=== PATIENT | male | born 1955 | race Caucasian/White ===

== ENCOUNTER 2016-11-12 13:49 | Inpatient (IN) ==
--- NOTE | 2016-11-12 13:59 | Emergency Department Note ---
Disposition Clinical Impression: Perirectal abscess, Cellulitis of buttock Disposition: Admitted As Inpatient Condition: Good Referrals: NO,PCP [Non-Partnered Physician] - Forms: ED Satisfaction Letter Time of Disposition: 18:17 Skin/Abscess/FB HPI Chief complaint: ED Wound/Laceration Stated complaint: ABCESS Time Seen by Provider: 11/12/16 13:55 Source: patient Mode of arrival: ambulatory Limitations: no limitations Nursing Notes Reviewed: Yes Vital Signs Reviewed: Yes HPI Narrative: 61-year-old who presents with swelling and redness to his right buttocks. States it started spontaneously draining. Patient has a history of chronic back pain has a pain stimulator. Patient underwent a myelogram last week and then developed symptoms of a draining abscess. Patient thinks he's been running some fever. Pt Subjective Complaint: abscess/boil (Right buttocks) Onset (ago): day(s) Location: buttocks Severity: moderate Quality: aching Consistency: constant Improves with: none Worsens with: palpation Context: other (Diabetic) Associated symptoms: Reports: fever, chills Treatments prior to arrival: none Home Medications Medication Instructions Recorded Confirmed ALPRAZolam [Xanax 0.5 MG Tablet] 0.5 mg PO BID PRN 12/22/15 04/01/16 Celecoxib [Celebrex] 200 mg PO DAILY 12/22/15 04/01/16 Cholecalciferol (D-3) [Vitamin D] 1,000 unit PO HS 12/22/15 04/01/16 Clopidogrel [Plavix] 75 mg PO DAILY 12/22/15 04/01/16 Duloxetine HCl [Cymbalta] 60 mg PO BID 12/22/15 04/01/16 Folic Acid 1 mg PO DAILY 12/22/15 04/01/16 Insulin Glargine [Lantus] 80 unit SQ BID 12/22/15 04/01/16 Insulin LISPRO [Humalog Kwikpen 40 unit SQ BID 12/22/15 04/01/16 U-100] Losartan Potassium [Cozaar] 100 mg PO DAILY 12/22/15 04/01/16 Metoprolol [Lopressor] 25 mg PO DAILY 12/22/15 04/01/16 Morphine Sulfate ER (24 HR) 30 mg PO Q12H 12/22/15 04/01/16 [Morphine Sulfate ER Caps] Nitroglycerin [Nitrostat] 0.4 mg SL AD PRN 12/22/15 04/01/16 Pantoprazole Sodium [Protonix] 40 mg PO DAILY 12/22/15 04/01/16 Pregabalin [Lyrica] 150 mg PO BID 12/22/15 04/01/16 Simvastatin [Zocor] 80 mg PO HS 12/22/15 04/01/16 Lubiprostone [Amitiza] 8 mcg PO BID 04/01/16 04/01/16 Previous Rx's Medication Instructions Recorded Nicotine Patch [Nicoderm] 21 mg TD DAILY #30 patch.td24 12/26/15 HYDROcodone/Acet 10/325 mg [[place] 1 tab PO Q4H PRN #40 tablet 04/02/16 10-325 mg] Allergies Allergy/AdvReac Type Severity Reaction Status Date / Time gentamicin [Gentamicin] Allergy Fever Verified 01/13/16 14:10 Oxycodone [From Percocet] Allergy Hives Verified 01/13/16 14:10 venom-honey bee Allergy Anaphylaxis Verified 01/13/16 14:10 [bee venom (honey bee)] All systems ED: reviewed and negative except as stated. Constitutional: Reports: fever, chills. Denies: weakness, weight change Eyes: Denies: eye pain, eye discharge, vision change ENT ED: Denies: ear pain, throat pain, dental pain, hearing loss, epistaxis, congestion, dysphagia Cardiovascular: Denies: chest pain, palpitations, dyspnea on exertion, edema, syncope Respiratory: Denies: cough, dyspnea, wheezes, hemoptysis, stridor Gastrointestinal: Denies: abdominal pain, nausea, vomiting, diarrhea, constipation, hematemesis, melena, hematochezia Genitourinary: Denies: urgency, dysuria, frequency, hematuria Musculoskeletal: Denies: back pain, neck pain, arthralgia, myalgia Integumentary: Denies: rash, abrasion, lesions Neurological: Denies: headache, weakness, numbness, paresthesias, confusion, abnormal gait, vertigo Psychiatric: Denies: anxiety, depression, suicidal thoughts, homicidal thoughts , auditory hallucinations, visual hallucinations Endocrine: Denies: fatigue Hematological/Lymphatic: Denies: easy bleeding, easy bruising Allergic/Immunologic: Denies: facial swelling, urticaria Past Medical History - Past Medical History Medical history: Reports: cancer, coronary artery disease, DVT, diabetes, GERD, hyperlipidemia, hypertension, other Surgical history: Reports: appendectomy, cholecystectomy, colectomy, orthopedic , other, other Psychiatric history: Reports: anxiety, depression - Social History Smoking Status: Current every day smoker Smokeless Tobacco Status: No Alcohol use: Reports: none Drug use: Reports: none Physical Exam - General Limitations: no limitations General appearance: alert, in no apparent distress - Head Head exam: atraumatic, normocephalic, normal inspection - Eye Eye exam: Present: normal appearance, PERRL, EOMI - ENT ENT exam: normal exam, normal oropharynx, mucous membranes moist - Neck Neck exam: Present: normal inspection, full ROM, trachea midline - Chest Chest inspection: Present: normal inspection, symmetric chest wall rise - Cardiovascular Cardiovascular exam: Present: regular rate - Abdominal Exam Abdominal exam: Present: soft, Non-Tender. Absent: tenderness, distention, guarding, rebound, rigidity - Rectal Exam Rectal exam: Present: tenderness (Right buttocks large area of erythema and open wound draining purulent material), other - Extremities Exam Extremities exam: Present: normal inspection, full ROM. Absent: tenderness, pedal edema - Expanded Lower Extremity Exam Neurovascular/Tendon exam: Absent: motor deficit, sensory deficit, tendon deficit Gait: not tested/not observed - Back Exam Back exam: Present: normal inspection, full ROM. Absent: tenderness - Neurological Exam Neurological exam: Present: alert, oriented X3 - Psychiatric Psychiatric exam: Present: normal affect, normal mood - Skin Skin exam: Present: warm, dry, intact, normal color Course - Reevaluation(s) Reevaluation #1: 61-year-old with draining abscess in the right buttocks. CT scan shows some deep it's extension. No drainable fluid collection. Consultation obtained with surgery patient will be admitted for IV antibiotics. Time: 18:17 - Consultations Consultation #1: Discussed with Dr. Silveira will see in consult. Time: 18:15 Consultation #2: Discussed with Alondra Esteban, it. Time: 18:16 Vital Signs Temperature 98.5 F 11/12/16 13:53 Pulse Rate 100 11/12/16 13:53 Respiratory Rate 22 11/12/16 13:53 Blood Pressure 113/82 11/12/16 13:53 O2 Sat by Pulse Oximetry 92 11/12/16 13:53 Temperature 98.5 F 11/12/16 13:53 Pulse Rate 98 11/12/16 17:54 Respiratory Rate 16 11/12/16 17:04 Blood Pressure 111/54 11/12/16 17:54 O2 Sat by Pulse Oximetry 96 11/12/16 17:54 Oxygen Delivery Oxygen Delivery Room Air Skin/Abscess/Foreign Body - Lab Data Lab results reviewed: Yes I reviewed the patient's lab results. Result diagrams: 11/12/16 15:13 11/12/16 15:13 Lab Results 11/12/16 11/12/16 11/12/16 Range/Units 15:13 15:13 15:13 WBC 28.2 H (4.3-11.1) K/mcL RBC 4.22 (4.19-5.50) M/mcL Hgb 12.6 L (12.9-16.9) g/dL Hct 36.4 L (37.5-50.1) % MCV 86.3 (83.0-100.0) fL MCH 29.9 (28.0-33.3) pg MCHC 34.6 (31.6-35.5) g/dL RDW 13.2 (11.5-14.5) % Plt Count 263 (140-400) K/mcL MPV 11.2 (9.4-12.4) fL Immature Gran % 0.7 (0-4) % Seg Neutrophils % 86.6 % Lymphocytes % 4.8 % Monocytes % 7.8 % Eosinophils % 0.0 % Basophils % 0.1 % Neutrophils # 24.4 H (1.6-8.9) K/mcL Lymphocytes # 1.4 (0.6-4.6) K/mcL Monocytes # 2.2 H (0.0-1.3) K/mcL Eosinophils # 0.0 (0.0-0.6) K/mcL Basophils # 0.0 (0.0-0.2) K/mcL Immature Plt Fraction 10.4 H (1.1-6.1) % ESR 104 H (0-10) mm/hr Sodium 130 L (136-145) mEq/L Potassium 3.9 (3.5-4.5) mEq/L Chloride 97 L (98-109) mEq/L Carbon Dioxide 22 (19-29) mEq/L BUN 27 H (8-26) mg/dL Creatinine 1.03 (0.72-1.25) mg/dL Est GFR ( Amer) > 60 (> 60) Est GFR (Non-Af Amer) > 60 (> 60) BUN/Creatinine Ratio 26 (6-26) Glucose 310 H (70-99) mg/dL Calculated Osmolality 287 (280-300) Calcium 9.2 (8.6-10.8) mg/dL - Radiology Data Radiology results reviewed: Yes I reviewed the patient's radiology results. Pelvis CT 11/12/16 13:55 IMPRESSION: 1. Soft tissue gas and fat stranding in the inferior left gluteal region extending into the ischiorectal fossa as well as through the left levator ani muscle and anterior to the prostate gland. No evidence of intraperitoneal extension. No drainable fluid collection. 2. No acute osseous abnormality. D/ / Mikhail Rodriguez MD / Mikhail Rodriguez MD Interpreting Provider: Mikhail Rodriguez MD
[2016-11-12 15:22] LABS: Basophils % 0.1 %; Hematocrit 36.4 % (37.5-50.1); Hemoglobin 12.6 g/dL (12.9-16.9); Immature Granulocytes % 0.7 % (0-4); Immature Platelets 10.4 % (1.1-6.1); Lymphocytes % 4.8 %; Mean Corpuscular HGB Conc 34.6 g/dL (31.6-35.5); Mean Corpuscular Hemoglobin 29.9 pg (28.0-33.3); Mean Corpuscular Volume 86.3 fL (83.0-100.0); Mean Platelet Volume 11.2 fL (9.4-12.4); Monocytes # 2.2 K/mcL (0.0-1.3); Monocytes % 7.8 %; Neutrophils # 24.4 K/mcL (1.6-8.9); Platelet Count 263 K/mcL (140-400); Red Blood Count 4.22 M/mcL (4.19-5.50); Red Cell Distribution Width 13.2 % (11.5-14.5); Segmented Neutrophils % 86.6 %
[2016-11-12 15:23] LABS: Lymphocytes # 1.4 K/mcL (0.6-4.6)
[2016-11-12 15:41] LABS: BUN/Creatinine Ratio 26 (6-26); Blood Urea Nitrogen 27 mg/dL (8-26); Calcium 9.2 mg/dL (8.6-10.8); Carbon Dioxide 22 mEq/L (19-29); Chloride 97 mEq/L (98-109); Glucose 310 mg/dL (70-99); Osmolality,Calculated 287 (280-300); Potassium 3.9 mEq/L (3.5-4.5); Sodium 130 mEq/L (136-145); eGFR For African Americans > 60 (> 60); eGFR For Non-African Americans > 60 (> 60)
[2016-11-12] MEDS ORDERED: Piperacillin/Tazobactam 3.375 GM in D5% in Water (Mini-Bag+) 100 ML IVPB ONE (15:55)
[2016-11-12] MEDS ORDERED: Vancomycin 1,000 MG in D5% in Water 250 ML IVPB ONE (15:55)
[2016-11-12] MEDS ORDERED: Ondansetron 4 MG/2 ML VIAL IVP ONE (18:54)
[2016-11-12] MEDS ORDERED: *HR* Morphine 2 MG/ML SYRINGE IVP ONE (18:54)
[2016-11-12] MEDS ORDERED: *HR* Morphine 2 MG/ML SYRINGE IVP PRN (21:07)
[2016-11-12] MEDS ORDERED: Naloxone 0.4 MG/ML INJ IVP PRN (21:07)
[2016-11-12] MEDS ORDERED: Ondansetron 4 MG/2 ML VIAL IVP PRN (21:07)
[2016-11-12] MEDS ORDERED: Acetaminophen 325 MG TABLET PO PRN (21:07)
[2016-11-12] MEDS ORDERED: Nitroglycerin 0.4 MG TAB.SUBL SL PRN (21:11)
[2016-11-12] MEDS ORDERED: *HR* HYDROcodone/Acet 5/325 mg TABLET PO PRN (21:11)
[2016-11-12] MEDS ORDERED: ALPRAZolam 0.5 MG TABLET PO PRN (21:11)
[2016-11-12] MEDS ORDERED: D5% in Water 1,000 ML IVC PRN (21:49)
[2016-11-12] MEDS ORDERED: *HR* Dextrose 50 % in Water (Syg) 50 ML SYRINGE IVP PRN (21:49)
[2016-11-12] MEDS ORDERED: Dextrose Gel 15 GM PO PRN ×2 (21:49)
--- NOTE | 2016-11-12 21:56 | Internal Med History&Physical ---
<Alondra Esteban M - Last Filed: 11/12/16 23:30> Date of Encounter: 11/12/16 Time of Encounter: 21:50 Assessment and Plan (1) Perirectal abscess Current visit: Yes Status: Acute Patient presented with worsening sore and abscess on left buttock. WBC 28.2, fever, chills, sweats, poor appetite. Pelvis CT showed soft tissue gas and fat stradning in inferior left gluteal region extending into the ischiorectal fossa and the left levator ani muscle and anterior to prostate. No drainable fluid collection. IV Vanc and Zosyn Consult to surgery, ED spoke with Dr. Silveira who will see patient tomorrow NPO after midnight for possible surgery. (2) Sleep apnea Current visit: Yes Status: Acute respiratory therapy consulted for CPAP Qualifiers: Sleep apnea type: unspecified type Qualified Code(s): G47.30 - Sleep apnea , unspecified (3) IDDM (insulin dependent diabetes mellitus) Current visit: Yes Status: Chronic check Hgb A1c. Patient is NPO after midnight for possible surgery tomorrow check blood sugars Q6 hr Reduce basal dose of insulin to 25u BID (he takes 50u BID at home) Sliding scale correction dose hypoglycemic protocol (4) HTN (hypertension) Current visit: Yes Status: Chronic continue home dose of metoprolol Qualifiers: Hypertension type: essential hypertension Qualified Code(s): I10 - Essential (primary) hypertension (5) Tobacco abuse Current visit: Yes Status: Chronic Patient smokes 1/2 PPD. He is trying to quit, offered encouragement. Smoking cessation education ordered. Nicotine patch. (6) DVT prophylaxis Current visit: Yes Status: Acute anti-embolic stockings Heparin 5000 SQ TID Internal Medicine - H&P: HPI Chief complaint: abscess on buttock Plans for Post Hospital Care: Home History of present illness: Mr. Pope is a 61 year old male with hypertension, hyperlipidemia, coronary artery disease, type 2 diabetes, peripheral vascular disease, sleep apnea, chronic back pain presents emergency department today with abscess on his left buttock. Patient reports that approximately 1 week ago he felt a small sore, and thought it was a hemorrhoid, he continued to feel worse, patient had poor appetite, nausea, chills and sweats. Patient went to his PCP on Tuesday started him on Bactrim and instructed him to go to the ER if symptoms worsened or if they did not improve in 4 days. Patient reports that the sore started draining yesterday with foul-smelling drainage. Patient reports lightheadedness on standing, headache, denies any chest pain, palpitations or shortness of breath. Evaluation in the emergency department revealed elevated white blood cell count of 28.2, elevated ESR of 104. Serum glucose was elevated at 310. Pelvic CT showed soft tissue gas and fat stranding in the inferior left gluteal region extending into the ischiorectal fossa and the left levator ani muscle and anterior to the prostate, no drainable fluid collection was seen. Patient was started on Vanco and Zosyn, was given morphine and Zofran in the ER. Light, patient alert and oriented, in no acute distress. Heart has regular rate and rhythm, lungs are clear bilaterally to auscultation. Patient has erythema to the left buttock with what looks like a half centimeter clot at the site of drainage point which is chest lateral to the anus. Past Med Surg Social Fam HX - Past Medical History Medical history: cancer, coronary artery disease, DVT, diabetes, GERD, hyperlipidemia, hypertension, other Psychiatric history: anxiety, depression - Past Surgical History Surgical History: appendectomy, cholecystectomy, colectomy, orthopedic, other, other - Social History Smoking Status: Current every day smoker Smokeless Tobacco Status: No Alcohol use: none Drug use: none - Family History Mother Living Status: Still Living Hx Family Cardiac Disorders: No Hx Family Respiratory Disorders: No Hx Family Cancer: No Hx Family GI Disorders: No Hx Family Endocrine Disorder: Yes Hx Family Neuromuscular Disorders: Yes (Parkinsons) Hx Family Neurologic Disorders: No Hx Family HEENT Disorders: No Hx Family Autoimmune Disorders: No Father Living Status: Still Living Hx Family Cardiac Disorders: Yes Hx Family Respiratory Disorders: No Hx Family Cancer: No Hx Family GI Disorders: No Hx Family Endocrine Disorder: Yes Hx Family Neuromuscular Disorders: No Hx Family Neurologic Disorders: No Hx Family HEENT Disorders: No Hx Family Autoimmune Disorders: No Internal Medicine - H&P: Meds ALPRAZolam [Xanax 0.5 MG Tablet] 0.5 mg PO BID PRN 12/22/15 [History] Celecoxib [Celebrex] 200 mg PO DAILY 12/22/15 [History] Cholecalciferol (D-3) [Vitamin D] 1,000 unit PO HS 12/22/15 [History] Clopidogrel [Plavix] 75 mg PO DAILY 12/22/15 [History] Duloxetine HCl [Cymbalta] 60 mg PO BID 12/22/15 [History] Folic Acid 1 mg PO DAILY 12/22/15 [History] Insulin Glargine [Lantus] 50 unit SQ BID 12/22/15 [History] Insulin LISPRO [Humalog Kwikpen U-100] 50 unit SQ BID 12/22/15 [History] Metoprolol [Lopressor] 25 mg PO DAILY 12/22/15 [History] Nitroglycerin [Nitrostat] 0.4 mg SL Q5M PRN 12/22/15 [History] Pantoprazole Sodium [Protonix] 40 mg PO DAILY 12/22/15 [History] Pregabalin [Lyrica] 150 mg PO TID 12/22/15 [History] Nicotine Patch [Nicoderm] 21 mg TD DAILY #30 patch.td24 12/26/15 [Rx] Lubiprostone [Amitiza] 8 mcg PO BID 04/01/16 [History] BuPROPion XL (24 HR) [Wellbutrin XL] 150 mg PO DAILY 11/12/16 [History] HYDROcodone/Acet 5/325 mg [[place] 5-325 mg] 1 tab PO DAILY PRN 11/12/16 [History] Morphine Sulfate SR (12 HR) [MS Contin] 30 mg PO Q12HR 11/12/16 [History] Ondansetron HCl [Zofran] 4 mg PO QID PRN 11/12/16 [History] Polyethylene Glycol 3350 [MiraLAX] 17 gm PO DAILY PRN 11/12/16 [History] Simvastatin [Zocor] 40 mg PO HS 11/12/16 [History] Sulfamethoxazole/Trimeth DS [Bactrim DS] 1 each PO BID 11/12/16 [History] Allergies gentamicin [Gentamicin] Allergy (Verified 01/13/16 14:10) Fever Oxycodone [From Percocet] Allergy (Verified 01/13/16 14:10) Hives venom-honey bee [bee venom (honey bee)] Allergy (Verified 01/13/16 14:10) Anaphylaxis All Systems PM: A 10-system review of systems was performed and is negative for pertinent findings except as documented above in the HPI. - Constitutional Constitutional: anorexia, chills, fever(s), malaise, no night sweats, no weakness - EENT Eyes: no change in vision, no discharge, no pain, no photophobia Ears: no ear discharge, no ear pain, no tinnitus Nose, mouth and throat: no dysphagia, no nasal discharge, no neck pain, no sore throat - Cardiovascular Cardiovascular ROS IM: diaphoresis, lightheadedness, no chest pain, no dyspnea, no palpitations, no syncope - Respiratory Respiratory: no cough, no dyspnea, no wheezing, no excessive phlegm production - Gastrointestinal Gastrointestinal: diarrhea, no abdominal pain, no hematemesis, no hematochezia, no melena, no nausea, no vomiting - Musculoskeletal Musculoskeletal ROS IM: no numbness, no tingling - Integumentary Integumentary IM: as per HPI, erythema, sores, no rash, no unusual bruising - Neurological Neurological ROS: no confusion, no convulsions, no focal weakness, no numbness, no tingling, no tremor(s) - Hematologic/Lymphatic Hematologic/Lymphatic: no easy bruising - Constitutional Vitals: Temp Pulse Resp BP Pulse Ox 98.4 F 99 16 151/52 95 11/12/16 20:34 11/12/16 20:34 11/12/16 20:34 11/12/16 20:34 11/12/16 20:34 General appearance: Present: A&O X 3, pleasant, no acute distress - Head Head exam: Present: atraumatic, normocephalic - Eye Eye exam: Present: PERRL, conjuntiva pink, sclera anicteric Pupils: Present: PERRL - Neck Neck exam general surgery: Present: supple, trachea midline. Absent: lymphadenopathy - Respiratory Respiratory exam: Present: CTAB. Absent: accessory muscle use, rales, rhonchi, wheezes - Cardiovascular Cardiovascular exam: Present: RRR, +S1, +S2. Absent: diastolic murmur, gallop, rubs, systolic murmur - GI/Abdominal GI/Abdominal exam: Present: normal bowel sounds, soft, no peritoneal signs. Absent: distended, tenderness - Extremities Exam Extremities exam: Present: warm, radial pulses palpable and symetrical. Absent : calf tenderness, cyanotic, pedal edema - Neurological Exam Neurological exam: Present: CN II-XII intact, oriented X3, no focal deficits. Absent: pronater drift, facial droop, speech deficit - Skin Skin exam: Present: dry, intact Additional comments: Erythema, tenderness to left buttock with 1/2 cm clot at drainage site just lateral to anus. Internal Med - H&P Results - Labs CBC & Chem 7: 11/12/16 15:13 11/12/16 15:13 Labs: All Lab Results (24 Hours) 11/12/16 11/12/16 11/12/16 Range/Units 15:13 15: 15:13 WBC 28.2 H (4.3-11.1) K/mcL RBC 4.22 (4.19-5.50) M/mcL Hgb 12.6 L (12.9-16.9) g/dL Hct 36.4 L (37.5-50.1) % MCV 86.3 (83.0-100.0) fL MCH 29.9 (28.0-33.3) pg MCHC 34.6 (31.6-35.5) g/dL RDW 13.2 (11.5-14.5) % Plt Count 263 (140-400) K/mcL MPV 11.2 (9.4-12.4) fL Immature Gran % 0.7 (0-4) % Seg Neutrophils % 86.6 % Lymphocytes % 4.8 % Monocytes % 7.8 % Eosinophils % 0.0 % Basophils % 0.1 % Neutrophils # 24.4 H (1.6-8.9) K/mcL Lymphocytes # 1.4 (0.6-4.6) K/mcL Monocytes # 2.2 H (0.0-1.3) K/mcL Eosinophils # 0.0 (0.0-0.6) K/mcL Basophils # 0.0 (0.0-0.2) K/mcL Immature Plt Fraction 10.4 H (1.1-6.1) % ESR 104 H (0-10) mm/hr Sodium 130 L (136-145) mEq/L Potassium 3.9 (3.5-4.5) mEq/L Chloride 97 L (98-109) mEq/L Carbon Dioxide 22 (19-29) mEq/L BUN 27 H (8-26) mg/dL Creatinine 1.03 (0.72-1.25) mg/dL Est GFR ( Amer) > 60 (> 60) Est GFR (Non-Af Amer) > 60 (> 60) BUN/Creatinine Ratio 26 (6-26) Glucose 310 H (70-99) mg/dL Calculated Osmolality 287 (280-300) Calcium 9.2 (8.6-10.8) mg/dL - Diagnostic Studies CT scan - pelvis Additional comments: Pelvis CT 11/12/16 13:55 IMPRESSION: 1. Soft tissue gas and fat stranding in the inferior left gluteal region extending into the ischiorectal fossa as well as through the left levator ani muscle and anterior to the prostate gland. No evidence of intraperitoneal extension. No drainable fluid collection. 2. No acute osseous abnormality. D/ / Mikhail Rodriguez MD / Mikhail Rodriguez MD Interpreting Provider: Mikhail Rodriguez MD <Edwin Main R - Last Filed: 11/13/16 09:51> Date of Encounter: 11/12/16 Internal Medicine - H&P: HPI History of present illness: Mr. Pope is a 61 year old male All Systems PM: A 10-system review of systems was performed and is negative for pertinent findings except as documented above in the HPI. - Constitutional Vitals: Temp Pulse Resp BP Pulse Ox 98.1 F 90 16 138/66 92 11/13/16 06:29 11/13/16 06:29 11/13/16 06:29 11/13/16 06:29 11/13/16 06:29 Internal Med - H&P Results - Labs CBC & Chem 7: 11/13/16 06:25 11/13/16 06:25 Labs: Short CBC 11/13/16 Range/Units 06:25 WBC 20.9 H (4.3-11.1) K/mcL Hgb 11.3 L (12.9-16.9) g/dL Hct 33.7 L (37.5-50.1) % Plt Count 273 (140-400) K/mcL Neutrophils # 17.2 H (1.6-8.9) K/mcL BMP 11/13/16 06:25 Sodium 133 L Potassium 3.3 L Chloride 100 Carbon Dioxide 26 BUN 18 Creatinine 0.79 Glucose 226 H Calcium 8.9 - Attending Attestation I performed history and physical examination of the patient and discussed management with the GRINDER SET UP OPERATOR GEAR TOOL / ANP. I reviewed the GRINDER SET UP OPERATOR GEAR TOOL / ANPs note and agree with documented findings and plan of care. 61 Y/M with h/o HTN, DM, CAD, SILVIANO presented with pain in the gluteal area, with drainage of pus. Failed outpatient therapy with Bactrim. ER physician discussed with surgeon, who will evaluate the pt. O/E: Erythema of the left buttock. Lungs: CTA; cardiac: RRR; B/L leg edema present CT scan of pelvis reported Soft tissue gas and fat stranding in the inferior left gluteal region extending into the ischiorectal fossa as well as through the left levator ani muscle and anterior to the prostate gland. Labs show leukocytosis. A/P: Cellulitis of the Left gluteal area with shae-rectal abscess, which spontaneously drained. Treat with IV antibiotics zosyn and vancomycin. Surgical consult for debrediment ER provider discussed with surgeon regional planner.
[2016-11-12] MEDS ORDERED: Vancomycin 1,500 MG in D5% in Water 250 ML IVPB SCH (22:00)
[2016-11-12 22:09] LABS: Hemoglobin A1C 8.6 %
[2016-11-12] MEDS: *HR* Morphine Sulfate SR (12 HR) 30 MG TABLET.ER PO SCH (22:19)
[2016-11-12] MEDS: Pregabalin 75 MG CAPSULE PO SCH (22:19)
[2016-11-12] MEDS: Insulin LISPRO 300 UNITS/3 ML VIAL SQ SCH (22:22)
[2016-11-12] MEDS: Insulin DETEMIR 100 UNIT/ML X5UNITS SQ SCH (22:33)
[2016-11-12] MEDS: Vancomycin 1,250 MG in D5% in Water 250 ML IVPB SCH (22:33)
[2016-11-13] MEDS: Piperacillin/Tazobactam 3.375 GM in D5% in Water (Mini-Bag+) 100 ML IVPB SCH ×3 (00:09→15:29)
[2016-11-13] MEDS: *HR* Heparin 5,000 UNIT/ML VIAL SQ SCH (00:09)
[2016-11-13] MEDS ORDERED: *HR* Morphine Sulfate SR (12 HR) 30 MG TABLET.ER PO SCH (06:00)
[2016-11-13] MEDS: 0.9 % Sodium Chloride 1,000 ML IVC SCH (06:26)
[2016-11-13 07:08] LABS: Hematocrit 33.7 % (37.5-50.1); Hemoglobin 11.3 g/dL (12.9-16.9); Mean Corpuscular HGB Conc 33.5 g/dL (31.6-35.5); Mean Corpuscular Hemoglobin 29.3 pg (28.0-33.3); Mean Corpuscular Volume 87.3 fL (83.0-100.0); Mean Platelet Volume 11.2 fL (9.4-12.4); Monocytes % 8.2 %; Platelet Count 273 K/mcL (140-400); Red Blood Count 3.86 M/mcL (4.19-5.50); Red Cell Distribution Width 13.4 % (11.5-14.5)
[2016-11-13 07:09] LABS: Basophils # 0.1 K/mcL (0.0-0.2); Basophils % 0.2 %; Eosinophils # 0.1 K/mcL (0.0-0.6); Eosinophils % 0.6 %; Lymphocytes # 1.7 K/mcL (0.6-4.6); Monocytes # 1.7 K/mcL (0.0-1.3); Neutrophils # 17.2 K/mcL (1.6-8.9)
[2016-11-13 07:21] LABS: BUN/Creatinine Ratio 23 (6-26); Blood Urea Nitrogen 18 mg/dL (8-26); Calcium 8.9 mg/dL (8.6-10.8); Carbon Dioxide 26 mEq/L (19-29); Chloride 100 mEq/L (98-109); Glucose 226 mg/dL (70-99); Osmolality,Calculated 285 (280-300); Potassium 3.3 mEq/L (3.5-4.5); Sodium 133 mEq/L (136-145); eGFR For African Americans > 60 (> 60); eGFR For Non-African Americans > 60 (> 60)
--- NOTE | 2016-11-13 07:41 | Internal Med Progress Note ---
<Den Valdes - Last Filed: 11/13/16 14:58> Date of Encounter: 11/13/16 Time of Encounter: 07:38 - Assessment and plan (1) Perirectal abscess Current Visit: Yes Status: Acute Assessment and plan: Erythematous, indurated, warm, 1cm fistula/abscess drainage site lateral to the anus in the left intergluteal region with serosanguineous drainage, severe perianal tenderness to palpation Pelvis CT shows Soft tissue gas and fat stranding in the inferior left gluteal region extending into the ischiorectal fossa as well as through the left levator ani muscle and anterior to the prostate gland. No evidence of intraperitoneal extension. No drainable fluid collection. Initial wound culture shows gram-negative rods. Blood cultures pending. Leukocytosis improved. Continue vancomycin and Zosyn (day 1). Will adjust antibiotics once culture results back. Patient previously on Bactrim for 4 days prior to arrival. Pain control. Surgery consulted. Anticipate surgery tomorrow AM. Full liquids. NPO after MN. Appreciate surgery recommendations (2) Gas gangrene Current Visit: Yes Status: Suspected Assessment and plan: Suspected. See above (3) Cellulitis of buttock Current Visit: Yes Status: Acute Assessment and plan: See above. (4) Hypomagnesemia Current Visit: Yes Status: Acute Assessment and plan: Magnesium 1.3. Supplement magnesium (5) Hypokalemia Current Visit: Yes Status: Acute Assessment and plan: Potassium 3.3. Supplement potassium (6) IDDM (insulin dependent diabetes mellitus) Current Visit: Yes Status: Chronic Assessment and plan: Hgb A1c 8.6 Patient is NPO after midnight for surgery check blood sugars Q6 hr Reduce basal dose of insulin to 25u BID (he takes 50u BID at home) Sliding scale correction dose hypoglycemic protocol (7) HTN (hypertension) Current Visit: Yes Status: Chronic Assessment and plan: Continue to monitor. Qualifiers: Hypertension type: essential hypertension Qualified Code(s): I10 - Essential (primary) hypertension (8) Tobacco abuse Current Visit: Yes Status: Chronic Assessment and plan: Tobacco cessation discussed (9) Sleep apnea Current Visit: Yes Status: Acute Assessment and plan: CPAP per respiratory therapy. Recommend outpatient follow-up Qualifiers: Sleep apnea type: unspecified type Qualified Code(s): G47.30 - Sleep apnea , unspecified (10) Hyponatremia Current Visit: Yes Status: Acute Assessment and plan: Improving. Continue IV fluids. (11) Urinary retention Current Visit: Yes Status: Acute Assessment and plan: Bladder distended on CT imaging. We will perform bladder scan. Patient denies dysuria. (12) Obesity (BMI 30.0-34.9) Current Visit: No Status: Acute Assessment and plan: Discussed diet and exercise (13) DVT prophylaxis Current Visit: No Status: Acute Assessment and plan: Hold heparin. Patient scheduled for surgery. Patient seen and examined, plan discussed with and agreed upon with Dr. Colvin - Subjective Interval history: Patient resting comfortably in bed. Patient reports moderate amount of pain in rectal area. Patient reports decreased appetite. He last ate 3 days ago. Patient denies fever, chills, nausea, vomiting, or dysuria. Awaiting surgery recommendation. is at bedside - Constitutional Vitals: Temp Pulse Resp BP Pulse Ox 98.1 F 90 16 138/66 92 11/13/16 06:29 11/13/16 06:29 11/13/16 06:29 11/13/16 06:11/13/16 06:29 General appearance: Present: mild distress, A&O X 3, pleasant, obese - Head Head exam: Present: atraumatic, normocephalic - Eye Eye exam: Present: PERRL, conjuntiva pink, sclera anicteric Pupils: Present: PERRL - ENT ENT exam: Present: mucous membranes moist, normal oropharynx - Neck Neck exam general surgery: Present: supple, trachea midline. Absent: lymphadenopathy - Respiratory Respiratory exam: Present: CTAB. Absent: accessory muscle use, rales, rhonchi, wheezes - Cardiovascular Cardiovascular exam: Present: RRR, +S1, +S2. Absent: diastolic murmur, gallop, rubs, systolic murmur - GI/Abdominal GI/Abdominal exam: Present: hernia (Umbilical hernia, reducible), normal bowel sounds, soft, no peritoneal signs. Absent: distended, tenderness - Rectal Rectal exam: Present: tenderness. Absent: hemorrhoids, normal inspection Additional comments: Erythematous, indurated, warm, 1cm fistula/abscess drainage site lateral to the anus in the left intergluteal region with serosanguineous drainage, severe perianal tenderness to palpation - Extremities Exam Extremities exam: Present: warm, radial pulses palpable and symetrical. Absent : calf tenderness, cyanotic, pedal edema - Neurological Exam Neurological exam: Present: CN II-XII intact, oriented X3, no focal deficits. Absent: pronater drift, facial droop, speech deficit - Psychiatric Psychiatric exam: Present: anxious, normal mood - Skin Skin exam: Present: warm. Absent: dry, intact Additional comments: Erythematous, indurated, warm, 1cm fistula/abscess drainage site lateral to the anus in the left intergluteal region with serosanguineous drainage, severe perianal tenderness to palpation Internal Medicine: Result - Labs CBC & Chem 7: 11/13/16 06:25 11/13/16 06:25 Labs: Short CBC 11/13/16 Range/Units 06:25 WBC 20.9 H (4.3-11.1) K/mcL Hgb 11.3 L (12.9-16.9) g/dL Hct 33.7 L (37.5-50.1) % Plt Count 273 (140-400) K/mcL Neutrophils # 17.2 H (1.6-8.9) K/mcL BMP 11/13/16 06:25 Sodium 133 L Potassium 3.3 L Chloride 100 Carbon Dioxide 26 BUN 18 Creatinine 0.79 Glucose 226 H Calcium 8.9 Consult Discharge Plan - Plan Referrals: Srinath Stewart DO [Primary Care Provider] - <Adam Colvin - Last Filed: 11/13/16 16:56> Date of Encounter: 11/13/16 - Assessment and plan (1) Sepsis Current Visit: Yes Status: Suspected Assessment and plan: Pt had leukocytosis and tachycardia on admit with source of infection. Not hypotensive. No lactate done. Currently leukocytosis is improving with treatment. Heartrate improved. Afebrile. Continue supportive care. Qualifiers: Sepsis type: sepsis due to unspecified organism Qualified Code(s): A41.9 - Sepsis, unspecified organism (2) Diabetes mellitus Current Visit: Yes Status: Acute Assessment and plan: Sugars poorly controlled. Meds adjusted. 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 Qualified Code(s): E11.65 - Type 2 diabetes mellitus with hyperglycemia; Z79.4 - hr analyst (current) use of insulin (3) Perirectal abscess Current Visit: Yes Status: Acute (4) Hypomagnesemia Current Visit: Yes Status: Acute (5) Hypokalemia Current Visit: Yes Status: Acute (6) HTN (hypertension) Current Visit: Yes Status: Chronic Qualifiers: Hypertension type: essential hypertension Qualified Code(s): I10 - Essential (primary) hypertension - Constitutional Vitals: Temp Pulse Resp BP Pulse Ox 98.0 F 85 16 131/66 95 11/13/16 15:02 11/13/16 15:02 11/13/16 15:02 11/13/16 15:02 11/13/16 15:02 Internal Medicine: Result - Labs CBC & Chem 7: 11/13/16 06:25 11/13/16 06:25 Labs: Short CBC 11/13/16 Range/Units 06:25 WBC 20.9 H (4.3-11.1) K/mcL Hgb 11.3 L (12.9-16.9) g/dL Hct 33.7 L (37.5-50.1) % Plt Count 273 (140-400) K/mcL Neutrophils # 17.2 H (1.6-8.9) K/mcL BMP 11/13/16 06:25 Sodium 133 L Potassium 3.3 L Chloride 100 Carbon Dioxide 26 BUN 18 Creatinine 0.79 Glucose 226 H Calcium 8.9 - ABG Interpretation ABG results: PT/INR, D-dimer PT 13.4 Seconds (9.4-12.1) H 11/13/16 10:41 - Attending Attestation I examined this patient and my medical decision-making was reviewed with the Resident Physician on 11/13/16. I agree with the documented findings, disposition and treatment plan as described except to the extent set forth below. Mr. Pope is currently admitted for acute perirectal infection and uncontrolled diabetes. He is high risk due to multiple antibiotics and potential for clinical worsening from infection. Mr. Pope is having some discomfort from infection. No fever or chills at this time. Has been evaluated by surgery and will be going to surgery tomorrow. No diarrhea at this time. Not very hungry at this time. Exam Alert. Comfortable at rest. Mucus membranes dry Heart reg No wheeze No edema Abd soft Perirectal area as described above. Labs reviewed I/P 1. Sepsis related to perirectal infection which was present on admission - initially had leukocytosis and tachycardia. No lactate obtained. Abx given and now clinically this is improving improved. Will continue current abx regimen. 2. Perirectal infection - for OR tomorrow 3. Uncontrolled DM - adjust meds. Further diagnoses and plan as above.
[2016-11-13 08:13] LABS: Magnesium 1.3 mg/dL (1.6-2.6)
[2016-11-13] MEDS: Celecoxib 200 MG CAPSULE PO SCH (08:58)
[2016-11-13] MEDS: Nicotine 21 MG PATCH.TD24 TD SCH (08:59)
[2016-11-13] MEDS: BuPROPion XL (24 HR) 150 MG TABLET PO SCH (08:59)
[2016-11-13] MEDS: Pregabalin 75 MG CAPSULE PO SCH ×3 (08:59→21:18)
[2016-11-13] MEDS ORDERED: Insulin DETEMIR 100 UNIT/ML X5UNITS SQ SCH (09:00)
[2016-11-13] MEDS ORDERED: Pregabalin 75 MG CAPSULE PO SCH (09:00)
[2016-11-13] MEDS: Insulin LISPRO 300 UNITS/3 ML VIAL SQ SCH ×4 (09:01→21:19)
[2016-11-13] MEDS: *HR* Morphine Sulfate SR (12 HR) 30 MG TABLET.ER PO SCH ×2 (09:04→21:19)
[2016-11-13] MEDS: Insulin DETEMIR 100 UNIT/ML X5UNITS SQ SCH ×2 (09:20→21:20)
[2016-11-13] MEDS ORDERED: Magnesium Sulfate 2 GM in D5% in Water 100 ML IVPB ONE (09:21)
--- NOTE | 2016-11-13 10:30 | General Surgery Consult Note ---
Date of Encounter: 11/13/16 Time of Encounter: 10:28 Assessment and Plan (1) Pelvic abscess Current Visit: Yes Status: Acute Pelvic CT on 11/12/16 demonstrates soft tissue gas and fat stranding in the inferior left gluteal region extending into the ischiorectal fossa as well as through the left levator ani muscle and anterior to the prostate gland. No evidence of intraperitoneal extension or drainable fluid collection. - NPO at midnight - Full liquids today ok - IV abx Vanc and Zosyn - Encouraged ICS and ambulation as tolerated - WBC trending down 28.2>20.9 - Supportive care - IVF @ 100cc/hr Repeat am labs Patient likely developed this pelvic abscess due to his insulin-dependent diabetes along with history of large and firm stool that required a significant amount of straining. The source of this pelvic abscess is likely enteric, due to a crypt abscess and has developed a fistula to his left buttock. Discussed the risks, benefits, alternatives, expected outcomes with the patient and he is in agreement to proceed to the operating room tomorrow morning for a washout with debridement and wound VAC placement with Dr. Silveira. (2) HTN (hypertension) Current Visit: Yes Status: Chronic Controlled. 138/66. Defer management to medicine. Qualifiers: Hypertension type: essential hypertension Qualified Code(s): I10 - Essential (primary) hypertension (3) Tobacco abuse Current Visit: Yes Status: Chronic Nicotine patch PRN (4) IDDM (insulin dependent diabetes mellitus) Current Visit: Yes Status: Chronic Defer management to medicine (5) Hypomagnesemia Current Visit: Yes Status: Acute Mag 1.3 today. Replacing. Repeat am labs (6) Hypokalemia Current Visit: Yes Status: Acute Potassium 3.3. Replacing. Repeat am labs. (7) Obesity (BMI 30.0-34.9) Current Visit: No Status: Acute (8) DVT prophylaxis Current Visit: No Status: Acute Heparin History of Present Illness Consult date: 11/12/16 Reason for consult: other (abscess) Requesting physician: Den Valdes History of present illness: Mr. Pope is a very pleasant 61 year old male with a past medical history of hypertension, hyperlipidemia, coronary artery disease, IDDM2, peripderal vascular disease sleep apnea and chronic back pain who presented to the [facility] emergency department with a chief complaint of left buttock pain for a duration of seven days. Patient reported that he noticed the pain roughly one week ago and began to feel progressively worse with n/v, chills and poor appetite. He decided to be seen on Tuesday at his PCP, Dr. Stewart, and was given PO Bactrim. He went to reveal that the wound began to drain two days with a horrible smell. On arrival to the ED, WBC was 28.2, ESR 104, Glucose 310 and VSS. Patient was admitted to [facility] and started on IV Vancomycin and Zosyn, pain control and supportive care. Pelvic CT demonstrated soft tissue gas with fat stranding in the inferior left gluteal region extending into the ischiorectal fossa and the left levator ani muscle, anterior to the prostate and thus, surgery was consulted. No drainage fluid collection was noted. On evaluation, patient reports a history of large and firm stools that requires a significant amount of strain. We will proceed with wash out/abcess debridement and wound vac placement tomorrow morning. Past Med Surg Social Fam HX - Past Medical History Medical history: cancer, coronary artery disease, DVT, diabetes, GERD, hyperlipidemia, hypertension, other Psychiatric history: anxiety, depression - Past Surgical History Surgical History: appendectomy, cholecystectomy, colectomy, orthopedic, other, other - Social History Smoking Status: Current every day smoker Smokeless Tobacco Status: No Alcohol use: none Drug use: none - Family History Mother Living Status: Still Living Hx Family Cardiac Disorders: No Hx Family Respiratory Disorders: No Hx Family Cancer: No Hx Family GI Disorders: No Hx Family Endocrine Disorder: Yes Hx Family Neuromuscular Disorders: Yes (Parkinsons) Hx Family Neurologic Disorders: No Hx Family HEENT Disorders: No Hx Family Autoimmune Disorders: No Father Living Status: Still Living Hx Family Cardiac Disorders: Yes Hx Family Respiratory Disorders: No Hx Family Cancer: No Hx Family GI Disorders: No Hx Family Endocrine Disorder: Yes Hx Family Neuromuscular Disorders: No Hx Family Neurologic Disorders: No Hx Family HEENT Disorders: No Hx Family Autoimmune Disorders: No Medications and Allergies ALPRAZolam [Xanax 0.5 MG Tablet] 0.5 mg PO BID PRN 12/22/15 [History] Celecoxib [Celebrex] 200 mg PO DAILY 12/22/15 [History] Cholecalciferol (D-3) [Vitamin D] 1,000 unit PO HS 12/22/15 [History] Clopidogrel [Plavix] 75 mg PO DAILY 12/22/15 [History] Duloxetine HCl [Cymbalta] 60 mg PO BID 12/22/15 [History] Folic Acid 1 mg PO DAILY 12/22/15 [History] Insulin Glargine [Lantus] 50 unit SQ BID 12/22/15 [History] Insulin LISPRO [Humalog Kwikpen U-100] 50 unit SQ BID 12/22/15 [History] Metoprolol [Lopressor] 25 mg PO DAILY 12/22/15 [History] Nitroglycerin [Nitrostat] 0.4 mg SL Q5M PRN 12/22/15 [History] Pantoprazole Sodium [Protonix] 40 mg PO DAILY 12/22/15 [History] Pregabalin [Lyrica] 150 mg PO TID 12/22/15 [History] Nicotine Patch [Nicoderm] 21 mg TD DAILY #30 patch.td24 12/26/15 [Rx] Lubiprostone [Amitiza] 8 mcg PO BID 04/01/16 [History] BuPROPion XL (24 HR) [Wellbutrin XL] 150 mg PO DAILY 11/12/16 [History] HYDROcodone/Acet 5/325 mg [Gering 5-325 mg] 1 tab PO DAILY PRN 11/12/16 [History] Morphine Sulfate SR (12 HR) [MS Contin] 30 mg PO Q12HR 11/12/16 [History] Ondansetron HCl [Zofran] 4 mg PO QID PRN 11/12/16 [History] Polyethylene Glycol 3350 [MiraLAX] 17 gm PO DAILY PRN 11/12/16 [History] Simvastatin [Zocor] 40 mg PO HS 11/12/16 [History] Sulfamethoxazole/Trimeth DS [Bactrim DS] 1 each PO BID 11/12/16 [History] Allergies gentamicin [Gentamicin] Allergy (Verified 01/13/16 14:10) Fever Oxycodone [From Percocet] Allergy (Verified 01/13/16 14:10) Hives venom-honey bee [bee venom (honey bee)] Allergy (Verified 01/13/16 14:10) Anaphylaxis Review of Systems All systems PM: A 10-system review of systems was performed and is negative for pertinent findings except as documented above in the HPI. - Constitutional as per HPI, no headache(s) - Cardiovascular no chest pain, no dyspnea - Respiratory no cough - Gastrointestinal no hematochezia, no melena, no vomiting - Genitourinary no dysuria - Musculoskeletal arthralgias - Integumentary as per HPI - Neurological no weakness - Endocrine no palpitations - Hematologic/Lymphatic no easy bruising General Surgery Exam Initial Vital Signs Temp Pulse Resp BP Pulse Ox 98.5 F 100 22 113/82 92 11/12/16 13:53 11/12/16 13:53 11/12/16 13:53 11/12/16 13:53 11/12/16 13:53 - General physical appearance no distress, obese - Eyes normal ocular movement - ENT normal mucosa - Neck trachea midline - Respiratory normal expansion, normal respiratory effort, clear to auscultation - Cardiovascular Cardiovascular exam: Present: RRR, no murmurs/rubs/gallops - Abdomen Abdomen general surgery: Present: bowel sounds present, soft, non tender Hernia: Present: umbilical (reducible) - Integumentary Integumentary general surgery: Present: other (left buttock - small area of induration and erythema. opening present with purulent drainage. TTP. warm. ) - Psychiatric Psychiatric general surgery: Present: appropriate, oriented to person, oriented to place, oriented to time, speech is normal, memory intact Exam Initial Vital Signs Temp Pulse Resp BP Pulse Ox 98.5 F 100 22 113/82 92 11/12/16 13:53 11/12/16 13:53 11/12/16 13:53 11/12/16 13:53 11/12/16 13:53 Results - Labs 11/13/16 06:25 11/13/16 06:25 Short CBC 11/13/16 11/12/16 Range/Units 06:25 15:13 WBC 20.9 H 28.2 H (4.3-11.1) K/mcL Hgb 11.3 L 12.6 L (12.9-16.9) g/dL Hct 33.7 L 36.4 L (37.5-50.1) % Plt Count 273 263 (140-400) K/mcL Neutrophils # 17.2 H 24.4 H (1.6-8.9) K/mcL BMP 11/13/16 11/12/16 Range/Units 06:25 15:13 Sodium 133 L 130 L (136-145) mEq/L Potassium 3.3 L 3.9 (3.5-4.5) mEq/L Chloride 100 97 L (98-109) mEq/L Carbon Dioxide 26 22 (19-29) mEq/L BUN 18 27 H (8-26) mg/dL Creatinine 0.79 1.03 (0.72-1.25) mg/dL Glucose 226 H 310 H (70-99) mg/dL Calcium 8.9 9.2 (8.6-10.8) mg/dL Vital Signs Temp Pulse Resp BP Pulse Ox 11/13/16 06:29 98.1 F 90 16 138/66 92 11/13/16 03:45 98.5 F 95 16 115/60 96 11/12/16 23:58 99.0 F 99 16 133/63 90 11/12/16 20:34 98.4 F 99 16 151/52 95 11/12/16 18:59 22 125/71 11/12/16 18:30 84 16 126/58 95 11/12/16 17:54 98 111/54 96 11/12/16 17:04 85 16 112/67 95 11/12/16 15:44 99 22 120/63 97 11/12/16 14:55 85 22 124/57 97 11/12/16 14:15 100 16 117/58 95 11/12/16 13:53 98.5 F 100 22 113/82 92 Intake and Output 11/12/16 11/13/16 11/13/16 23:59 07:59 15:59 Intake Total 100 / 100 350 / 350 100 / 100 Output Total 0 / 0 300 / 300 Balance 100 / 100 50 / 50 100 / 100 Intake: IV Fluids 100 / 100 350 / 350 100 / 100 Zosyn 3.375 GM In 100 / 100 100 / 100 Dextrose 5% (Minibag+) 100 ML 100 ML @ 25 mls/hr IVPB Q8HR [facility] Rx#: [id number] Potassium Chloride 10 mEq 100 / 100 /100mL 10 meq In 100 ml @ 100 mls/hr IVPB Q1H [facility] Rx#:[id number] Vancocin 1,250 MG In 250 / 250 Dextrose 5% 250 ML @ 166. 67 mls/hr IVPB Q12H [facility] Rx#:[id number] Oral 0 / 0 0 / 0 Output: Urine 0 / 0 300 / 300 Other: Meal NPO # Voids 1 # Bowel Movements 0 Weight 107.6 kg Blood Glucose* 216 Consult Discharge Plan - Plan Referrals: Srinath Stewart DO [Primary Care Provider] -
[2016-11-13 11:06] LABS: INR 1.2; Prothrombin Time 13.4 Seconds (9.4-12.1)
[2016-11-13] MEDS: Vancomycin 1,250 MG in D5% in Water 250 ML IVPB SCH ×2 (11:18→21:19)
[2016-11-14] MEDS: Piperacillin/Tazobactam 3.375 GM in D5% in Water (Mini-Bag+) 100 ML IVPB SCH ×2 (00:29→07:57)
[2016-11-14] MEDS: *HR* Heparin 5,000 UNIT/ML VIAL SQ SCH ×2 (00:29→07:56)
[2016-11-14] MEDS: 0.9 % Sodium Chloride 1,000 ML IVC SCH (04:30)
[2016-11-14 05:08] LABS: Hemoglobin 12.5 g/dL (12.9-16.9); Mean Corpuscular HGB Conc 33.8 g/dL (31.6-35.5); Mean Corpuscular Hemoglobin 29.7 pg (28.0-33.3); Mean Corpuscular Volume 87.9 fL (83.0-100.0); Mean Platelet Volume 10.6 fL (9.4-12.4); Platelet Count 338 K/mcL (140-400); Red Blood Count 4.21 M/mcL (4.19-5.50); Red Cell Distribution Width 13.7 % (11.5-14.5)
[2016-11-14 05:26] LABS: Alanine Aminotransferase 203 Units/L (0-55); Albumin 2.2 g/dL (3.5-5.0); Albumin/Globulin Ratio 0.5 (1.1-2.2); Alkaline Phosphatase 268 Units/L (38-126); Aspartate Amino Transferase 239 Units/L (5-34); BUN/Creatinine Ratio 19 (6-26); Blood Urea Nitrogen 16 mg/dL (8-26); Calcium 9.2 mg/dL (8.6-10.8); Carbon Dioxide 27 mEq/L (19-29); Chloride 101 mEq/L (98-109); Globulin 4.1 g/dL (2.4-3.5); Glucose 171 mg/dL (70-99); Magnesium 1.5 mg/dL (1.6-2.6); Osmolality,Calculated 283 (280-300); Potassium 3.6 mEq/L (3.5-4.5); Sodium 134 mEq/L (136-145); Total Protein 6.3 g/dL (6.0-8.3); eGFR For African Americans > 60 (> 60); eGFR For Non-African Americans > 60 (> 60)
[2016-11-14 06:36] VITALS: BP 158/75
[2016-11-14] MEDS ORDERED: Magnesium Sulfate 2 GM in D5% in Water 100 ML IVPB ONE (07:19)
[2016-11-14] MEDS: Pregabalin 75 MG CAPSULE PO SCH (07:56)
[2016-11-14] MEDS: Celecoxib 200 MG CAPSULE PO SCH (07:56)
[2016-11-14] MEDS: *HR* Morphine Sulfate SR (12 HR) 30 MG TABLET.ER PO SCH (07:57)
[2016-11-14] MEDS: BuPROPion XL (24 HR) 150 MG TABLET PO SCH (07:57)
[2016-11-14] MEDS: Nicotine 21 MG PATCH.TD24 TD SCH (07:57)
[2016-11-14] MEDS: Insulin LISPRO 300 UNITS/3 ML VIAL SQ SCH (08:01)
[2016-11-14] MEDS: Vancomycin 1,250 MG in D5% in Water 250 ML IVPB SCH ×2 (09:31→09:56)
[2016-11-14] MEDS: Insulin DETEMIR 100 UNIT/ML X5UNITS SQ SCH (09:31)
[2016-11-14 10:12] LABS: C-Reactive Protein 222 mg/L (Less than 5)
--- NOTE | 2016-11-14 10:35 | Discharge Summary ---
Date of Encounter: 11/14/16 Time of Encounter: 09:00 - Discharge Diagnosis (1) Sepsis Priority: Primary Status: Suspected Qualifiers: Sepsis type: Escherichia coli Qualified Code(s): A41.51 - Sepsis due to Escherichia coli [E. coli] (2) Diabetes mellitus Priority: Secondary Status: Chronic Qualifiers: Diabetes mellitus type: type 2 Diabetes mellitus complication status: with hyperglycemia Diabetes mellitus superintendent terminal insulin use: with superintendent terminal use Qualified Code(s): E11.65 - Type 2 diabetes mellitus with hyperglycemia; Z79.4 - meterman (current) use of insulin (3) Perirectal abscess Priority: Primary Status: Acute (4) Hypomagnesemia Priority: Secondary Status: Acute (5) Hypokalemia Priority: Secondary Status: Acute (6) HTN (hypertension) Priority: Secondary Status: Chronic Qualifiers: Hypertension type: essential hypertension Qualified Code(s): I10 - Essential (primary) hypertension (7) CAD (coronary artery disease) Priority: Secondary Status: Chronic Qualifiers: Coronary Disease-Associated Artery/Lesion type: [place] artery [place] vs. transplanted heart: [place] heart Associated angina: without angina Qualified Code(s): I25.10 - Atherosclerotic heart disease of [place] coronary artery without angina pectoris (8) HLD (hyperlipidemia) Priority: Secondary Status: Chronic Qualifiers: Hyperlipidemia type: mixed hyperlipidemia Qualified Code(s): E78.2 - Mixed hyperlipidemia (9) GERD (gastroesophageal reflux disease) Priority: Secondary Status: Chronic Qualifiers: Esophagitis presence: esophagitis presence not specified Qualified Code(s) : K21.9 - Gastro-esophageal reflux disease without esophagitis (10) Tobacco abuse Priority: Secondary Status: Chronic - Discharge Medications Home Medications: ALPRAZolam [Xanax 0.5 MG Tablet] 0.5 mg PO BID PRN 12/22/15 [History] Celecoxib [Celebrex] 200 mg PO DAILY 12/22/15 [History] Cholecalciferol (D-3) [Vitamin D] 1,000 unit PO HS 12/22/15 [History] Clopidogrel [Plavix] 75 mg PO DAILY 12/22/15 [History] Duloxetine HCl [Cymbalta] 60 mg PO BID 12/22/15 [History] Folic Acid 1 mg PO DAILY 12/22/15 [History] Insulin Glargine [Lantus] 50 unit SQ BID 12/22/15 [History] Insulin LISPRO [Humalog Kwikpen U-100] 50 unit SQ BID 12/22/15 [History] Metoprolol [Lopressor] 25 mg PO DAILY 12/22/15 [History] Nitroglycerin [Nitrostat] 0.4 mg SL Q5M PRN 12/22/15 [History] Pantoprazole Sodium [Protonix] 40 mg PO DAILY 12/22/15 [History] Pregabalin [Lyrica] 150 mg PO TID 12/22/15 [History] Nicotine Patch [Nicoderm] 21 mg TD DAILY #30 patch.td24 12/26/15 [Rx] Lubiprostone [Amitiza] 8 mcg PO BID 04/01/16 [History] BuPROPion XL (24 HR) [Wellbutrin XL] 150 mg PO DAILY 11/12/16 [History] HYDROcodone/Acet 5/325 mg [[place] 5-325 mg] 1 tab PO DAILY PRN 11/12/16 [History] Morphine Sulfate SR (12 HR) [MS Contin] 30 mg PO Q12HR 11/12/16 [History] Ondansetron HCl [Zofran] 4 mg PO QID PRN 11/12/16 [History] Polyethylene Glycol 3350 [MiraLAX] 17 gm PO DAILY PRN 11/12/16 [History] Simvastatin [Zocor] 40 mg PO HS 11/12/16 [History] Sulfamethoxazole/Trimeth DS [Bactrim DS] 1 each PO BID 11/12/16 [History] Allergies/Adverse Reactions: Allergies gentamicin [Gentamicin] Allergy (Verified 01/13/16 14:10) Fever Oxycodone [From Percocet] Allergy (Verified 01/13/16 14:10) Hives venom-honey bee [bee venom (honey bee)] Allergy (Verified 01/13/16 14:10) Anaphylaxis Date of admission: 11/12/16 21:07 Primary care physician: Srinath Stewart Consults: Jordana Discharging clinician: Adam Colvin Anticipated date of discharge: 11/14/16 - Patient Status Disposition: Transfer Short-Term Hosp Condition: Fair Functional capacity at discharge: bed bound Overall status at discharge: patient is not back to baseline - Discharge Instructions Follow Up With: Dickens,Srinath Jan, DO [Primary Care Provider] - - Diet and Activity Activity: increase activity as tolerated Diet: other (NPO) Hospital course: Mr. Pope is a 61 year old male with a prior history of DM, HTN HLD and CAD who presented to ED on 11/12 with complaints of a "draining sore" on his L buttocks. He recently had myelogram and had noticed development of a "sore" on his buttocks (this was approx 1 week prior to presentation). Initially he thought this was a hemorrhoid but he began to feel ill with nausea, chills and sweats. He also had issues with large hard stool and was straining to move his bowels. He was seen by his PCP on Tuesday (11/10) and was started on Bactrim and told to go to ED if did not improve. On 11/11 the area started draining a foul smelling discharge and he still felt quite ill. He presented to ED on 11/12. He was evaluated in the ED and had WBC of 28.2. CT was performed and there was no evidence of discrete fluid collection. Air was present in the tissues on CT and area was draining. Culture was obtained. According to records surgery was contacted and patient was ultimately admitted to the hospitalist service. He was started on IV abx of Zosyn and Vancomycin and given Morphine and Zofran. On 11/13 his WBC had decreased to 20K. His vitals overnight revealed no fever or hypotension. He was evaluated by surgery and arrangements were made for surgical debridement and wound vac placement. This was ultimately scheduled for 11/14 AM. He was noted to have some issues with urinary retention (post void residual greater than 400ml) and can ordered but patient refused placement. He remained afebrile with no hypotension or tachycardia. His wound culture grew E. coli sensitive to Zosyn and blood cultures have been negative. His blood sugars have varied between 170s to mid 250s and have been treated. On 11/14 AM he was scheduled for operative debridement. Family present at bedside and requested transfer to [place] for additional surgical evaluation. He has been accepted for evaluation by colo rectal surgery. He will be transferred today. - Time Spent with Patient Total time spent providing and/or coordinating discharge services: 40min - Constitutional Vitals: Temp Pulse Resp BP Pulse Ox 98.1 F 88 16 158/75 93 11/14/16 06:35 11/14/16 06:35 11/14/16 06:35 11/14/16 06:35 11/14/16 06:35 General appearance: Present: A&O X 3, pleasant, obese - Head Head exam: Present: normocephalic - ENT ENT exam: Present: mucous membranes dry - Respiratory Respiratory exam: Present: decreased breath sounds. Absent: rhonchi, wheezes - Cardiovascular Cardiovascular exam: Present: RRR. Absent: tachycardia - GI/Abdominal GI/Abdominal exam: Present: soft. Absent: tenderness - Extremities Exam Extremities exam: Present: warm. Absent: pedal edema, tenderness - Neurological Exam Neurological exam: Present: alert, oriented X3, no focal deficits - Skin Skin exam: Present: dry, warm. Absent: rash
--- NOTE | 2016-11-14 10:50 | Event Note ---
Date of Encounter: 11/14/16 Time of Encounter: 10:50 Pt requested a transfer to [place].
[2016-11-14] MEDS ORDERED: Aminoglycoside Consult 1 EACH MC ONE (11:24)
== END 2016-11-14 11:25 | disposition critical access hospital (66) | DRG 871 ==
LOC: EMEROO 13:49 → 3ANU 13:49 → SUATTDRO 21:07
PROVIDERS: ADMIT Nurse Practitioner Family; ATTEND Internal Medicine

== ENCOUNTER 2017-05-23 11:27 | Observation (INO) ==
--- NOTE | 2017-05-23 13:50 | Emergency Department Note ---
START Narrative - START START: I examined this patient and my medical decision-making was reviewed with the Resident Physician. I agree with the documented findings, disposition and treatment plan as described except to the extent set forth below. 62-year-old male presents to the emergency room for chest pain as well as bilateral leg pain. He has a history of an aortal- femoral bypass in his legs by vascular surgery. Patient has been having increased pain with walking consistent with claudication in both legs. Has not seen his vascular surgeon and months. He states this is adequate coronary for him. Also been complaining of intermittent chest pain for the past week or so. Has a history of one cardiac stent. He does take Plavix and aspirin and has been compliant with his medications. Workup in the ER will consist of arterial Doppler studies as well as cardiac workup and ankle brachial index studies. Patient will need to be admitted for further workup of both of this issues
[2017-05-23 14:20] LABS: Basophils # 0.1 K/mcL (0.0-0.2); Basophils % 0.7 %; Eosinophils # 0.3 K/mcL (0.0-0.6); Eosinophils % 3.5 %; Hematocrit 38.5 % (37.5-50.1); Hemoglobin 12.7 g/dL (12.9-16.9); Immature Granulocytes % 0.6 % (0-4); Immature Platelets 6.2 % (1.1-6.1); Lymphocytes % 36.1 %; Mean Corpuscular Hemoglobin 29.3 pg (28.0-33.3); Mean Corpuscular Volume 88.7 fL (83.0-100.0); Mean Platelet Volume 10.2 fL (9.4-12.4); Monocytes # 0.8 K/mcL (0.0-1.3); Neutrophils # 4.1 K/mcL (1.6-8.9); Platelet Count 234 K/mcL (140-400); Red Blood Count 4.34 M/mcL (4.19-5.50); Red Cell Distribution Width 13.3 % (11.5-14.5); Segmented Neutrophils % 49.1 %
[2017-05-23 14:40] LABS: Prothrombin Time 11.2 Seconds (9.4-12.1)
[2017-05-23 14:43] LABS: Activated Partial Thrombo Time 30.3 Seconds (26.0-36.0)
[2017-05-23 14:44] LABS: BUN/Creatinine Ratio 17 (6-26); Blood Urea Nitrogen 16 mg/dL (8-23); Calcium 9.3 mg/dL (8.6-10.3); Carbon Dioxide 29 mEq/L (23-29); Chloride 106 mEq/L (98-107); Creatine Kinase 42 Units/L (30-223); Glucose 90 mg/dL (70-105); Osmolality,Calculated 291 (280-300); Potassium 4.4 mEq/L (3.5-5.1); Sodium 140 mEq/L (136-145); eGFR For African Americans > 60 (> 60); eGFR For Non-African Americans > 60 (> 60)
[2017-05-23] MEDS ORDERED: Ondansetron 4 MG/2 ML VIAL IVP ONE (15:10)
--- NOTE | 2017-05-23 15:32 | Emergency Department Note ---
Disposition Clinical Impression: Claudication Chest pain Qualifiers: Chest pain type: unspecified Qualified Code(s): R07.9 - Chest pain, unspecified Disposition: Admitted As Inpatient Condition: Fair General Adult HPI - General Chief complaint: ED Extremity Injury, Lower Stated complaint: "Blocked artery in LLE, possibly RLE" Time Seen by Provider: 05/23/17 13:33 Source: patient Mode of arrival: ambulatory Limitations: no limitations Nursing Notes Reviewed: Yes Vital Signs Reviewed: Yes - History of Present Illness HPI Narrative: Patient presents for evaluation of leg pain and chest pain. Patient states that he has had leg pain that has been getting worse over the last 2 weeks. Patient has known vascular disease and claudication. Patient's claudication has been happening at rest now. Patient's symptoms acutely worse over the last 2 days. She states that he has been having chest pain when he walks. The chest pain as well as leg pain does get better when he gets nitroglycerin. Patient states that he does have a previous history of cardiac stent placement. The patient's legs have undergone significant surgeries including failed iliofemoral bypass as well as multiple stents. Pain Scale: 7 - Related Data Home Medications Medication Instructions Recorded Confirmed ALPRAZolam [Xanax 0.5 MG Tablet] 0.5 mg PO BID PRN 12/22/15 05/23/17 Celecoxib [Celebrex] 200 mg PO DAILY 12/22/15 05/23/17 Cholecalciferol (D-3) [Vitamin D] 1,000 unit PO HS 12/22/15 05/23/17 Clopidogrel [Plavix] 75 mg PO DAILY 12/22/15 05/23/17 Duloxetine HCl [Cymbalta] 60 mg PO BID 12/22/15 05/23/17 Folic Acid 1 mg PO DAILY 12/22/15 05/23/17 Insulin Glargine [Lantus] 50 unit SQ BID 12/22/15 05/23/17 Insulin LISPRO [Humalog Kwikpen 8 unit SQ TIDWM 12/22/15 05/23/17 U-100] Nitroglycerin [Nitrostat] 0.4 mg SL Q5M PRN 12/22/15 05/23/17 Pantoprazole Sodium [Protonix] 40 mg PO DAILY 12/22/15 05/23/17 Pregabalin [Lyrica] 150 mg PO BID 12/22/15 05/23/17 Lubiprostone [Amitiza] 8 mcg PO BID 04/01/16 05/23/17 Morphine Sulfate SR (12 HR) [MS 30 mg PO Q12HR 11/12/16 05/23/17 Contin] Ondansetron HCl [Zofran] 4 mg PO QID PRN 11/12/16 05/23/17 Polyethylene Glycol 3350 [MiraLAX] 17 gm PO DAILY PRN 11/12/16 05/23/17 Atorvastatin [Lipitor] 40 mg PO HS 05/23/17 05/23/17 Cyclobenzaprine HCl 5 mg PO TID PRN 05/23/17 05/23/17 Dulaglutide [Trulicity] 0.75 mg SQ WE 05/23/17 05/23/17 Losartan Potassium [Cozaar] 100 mg PO DAILY 05/23/17 05/23/17 Allergies Allergy/AdvReac Type Severity Reaction Status Date / Time gentamicin [Gentamicin] Allergy Fever Verified 01/13/16 14:10 Oxycodone [From Percocet] Allergy Hives Verified 01/13/16 14:10 venom-honey bee Allergy Anaphylaxis Verified 01/13/16 14:10 [bee venom (honey bee)] Review of Systems: CONSTITUTIONAL: No weight loss, fever, chills, weakness or fatigue. HEENT: Eyes: No visual changes. Ears, Nose, Throat: No hearing loss, difficulty talking or unable to swallow. SKIN: No rash or itching. CARDIOVASCULAR: Chest pain RESPIRATORY: No shortness of breath, cough or sputum. GASTROINTESTINAL: No anorexia, nausea, vomiting or diarrhea. No abdominal pain or blood. GENITOURINARY: No burning on urination or hematuria. NEUROLOGICAL: No headache, dizziness, syncope, paralysis, ataxia, numbness or tingling in the extremities. No change in bowel or bladder control. MUSCULOSKELETAL: Leg pain Past Medical History - Past Medical History Medical history: Reports: cancer, coronary artery disease, DVT, diabetes, GERD, hyperlipidemia, hypertension, other Surgical history: Reports: appendectomy, cholecystectomy, colectomy, orthopedic , other, other Psychiatric history: Reports: anxiety, depression - Social History Smoking Status: Former smoker Smokeless Tobacco Status: No Alcohol use: Reports: none Drug use: Reports: none Physical Exam General: Well appearing, nontoxic, no acute distress Head: Normocephalic Atraumatic Eyes: PERRL, EOMI ENT: Airway patent, no stridor Neck: supple, no meningismus Chest: Lungs clear to auscultation bilateral Vascular: Dopplerable DP bilaterally. Cardiac: Regular rate and rhythm, no murmurs, rubs or gallops Abdomen: soft, nontender, nondistended; no guarding, rebound, or tenderness to percussion Musculoskeletal: Calves symmetric, tender to palpation of both calves Skin: No rash, normal skin tone Neuro: Alert and Oriented to person, place, and time; No focal deficit, CN 2-12 symmetric and intact - General General appearance: alert Course - Reevaluation(s) Reevaluation #1: Patient continues to have leg pain. JEMAL 0.55. DVT studies negative. Patient will need to undergo admission for further evaluation of leg pain as well as chest pain. Reevaluation #2: Patient will need further evaluation of continued leg pain as patient cannot get up to ambulate. The patient's chest pain is also very concerning. The patient will be admitted for further evaluation. EKG in the emergency department shows electronically paced rhythm with no significant elevation or depression. Ventricular rate of 84. - Consultations Consultation #1: Discussed with Dr. Call. Patient does not need anticoagulation at this time. Depending on what cardiology decides to do he may receive angiography for further evaluation of the legs. If the patient requires a cardiac catheter at this time the lower extremity imaging will be deferred to an outpatient study. Vital Signs Temperature 98.2 F 05/23/17 11:29 Pulse Rate 87 05/23/17 11:29 Respiratory Rate 18 05/23/17 11:29 Blood Pressure 156/86 05/23/17 11:29 O2 Sat by Pulse Oximetry 99 05/23/17 11:29 Temperature 97.9 F 05/23/17 19:08 Pulse Rate 77 05/23/17 19:08 Respiratory Rate 15 05/23/17 19:08 Blood Pressure 133/64 05/23/17 19:08 O2 Sat by Pulse Oximetry 97 05/23/17 19:08 Oxygen Delivery Oxygen Delivery Room Air Medical Decision Making - Lab Data Result diagrams: 05/23/17 14:05 05/23/17 14:05 Lab Results 05/23/17 05/23/17 05/23/17 Range/Units 14:05 14:05 14:05 WBC 8.3 (4.3-11.1) K/mcL RBC 4.34 (4.19-5.50) M/mcL Hgb 12.7 L (12.9-16.9) g/dL Hct 38.5 (37.5-50.1) % MCV 88.7 (83.0-100.0) fL MCH 29.3 (28.0-33.3) pg MCHC 33.0 (31.6-35.5) g/dL RDW 13.3 (11.5-14.5) % Plt Count 234 (140-400) K/mcL MPV 10.2 (9.4-12.4) fL Immature Gran % 0.6 (0-4) % Seg Neutrophils % 49.1 % Lymphocytes % 36.1 % Monocytes % 10.0 % Eosinophils % 3.5 % Basophils % 0.7 % Neutrophils # 4.1 (1.6-8.9) K/mcL Lymphocytes # 3.0 (0.6-4.6) K/mcL Monocytes # 0.8 (0.0-1.3) K/mcL Eosinophils # 0.3 (0.0-0.6) K/mcL Basophils # 0.1 (0.0-0.2) K/mcL Immature Plt Fraction 6.2 H (1.1-6.1) % PT (9.4-12.1) Seconds INR APTT (26.0-36.0) Seconds Sodium 140 (136-145) mEq/L Potassium 4.4 (3.5-5.1) mEq/L Chloride 106 (98-107) mEq/L Carbon Dioxide 29 (23-29) mEq/L BUN 16 (8-23) mg/dL Creatinine 0.95 (0.70-1.30) mg/dL Est GFR ( Amer) > 60 (> 60) Est GFR (Non-Af Amer) > 60 (> 60) BUN/Creatinine Ratio 17 (6-26) Glucose 90 (70-105) mg/dL Calculated Osmolality 291 (280-300) Lactic Acid 0.9 (0.5-2.2) mmol/L Calcium 9.3 (8.6-10.3) mg/dL Creatine Kinase 42 (30-223) Units/L Troponin I (< 0.04) ng/mL 05/23/17 05/23/17 Range/Units 14:05 14:05 WBC (4.3-11.1) K/mcL RBC (4.19-5.50) M/mcL Hgb (12.9-16.9) g/dL Hct (37.5-50.1) % MCV (83.0-100.0) fL MCH (28.0-33.3) pg MCHC (31.6-35.5) g/dL RDW (11.5-14.5) % Plt Count (140-400) K/mcL MPV (9.4-12.4) fL Immature Gran % (0-4) % Seg Neutrophils % % Lymphocytes % % Monocytes % % Eosinophils % % Basophils % % Neutrophils # (1.6-8.9) K/mcL Lymphocytes # (0.6-4.6) K/mcL Monocytes # (0.0-1.3) K/mcL Eosinophils # (0.0-0.6) K/mcL Basophils # (0.0-0.2) K/mcL Immature Plt Fraction (1.1-6.1) % PT 11.2 (9.4-12.1) Seconds INR 1.0 APTT 30.3 (26.0-36.0) Seconds Sodium (136-145) mEq/L Potassium (3.5-5.1) mEq/L Chloride (98-107) mEq/L Carbon Dioxide (23-29) mEq/L BUN (8-23) mg/dL Creatinine (0.70-1.30) mg/dL Est GFR ( Amer) (> 60) Est GFR (Non-Af Amer) (> 60) BUN/Creatinine Ratio (6-26) Glucose (70-105) mg/dL Calculated Osmolality (280-300) Lactic Acid (0.5-2.2) mmol/L Calcium (8.6-10.3) mg/dL Creatine Kinase (30-223) Units/L Troponin I < 0.03 (< 0.04) ng/mL
[2017-05-23 19:09] VITALS: BP 133/64
--- NOTE | 2017-05-23 21:39 | Event Note ---
Date of Encounter: 05/23/17 Time of Encounter: 21:10 Pt admitted for chest pain monitoring and further evaluation of LE claudication. Known history of PAD with h/o bypass surgery to LE. Patient has been on medical floor for approximately 2 hours and is upset that hospitalist team has not yet been by his room to evaluate them. Patient complains of hunger and pain citing suboptimal management of said pain. Prior to request of AMA signout, I did not receive any notifications for interim orders. I visited the patient at approximately 2109, and apologized profusely for any delays in his care citing that more critical patients are often prioritized into the order in which they are seen. Offered to manage any orders in the interim to help alleviate his pain or offer him further comfort, including getting meal orders in place. Patient adamantly refused any further help and was insistent upon signing out against medical advice. Patient asked me to leave his room and to get the nurse to the get his IV out so he could leave. Discussed with patient risks of leaving prematurely as well as benefits of staying for ongoing monitoring and therapy. I was unable to convince patient to stay. AMA paperwork was prepared by myself and the nurse, however, patient refused to sign. At approximately 2133, I received a page viable sera from the patient's nurse, Zaina, with the following text: [sic] "Patient left without signing AMA papers. I stopped patient at the elevators. I informed patient he needed to sign any papers and let me take out IV. adult crossing guard also at elevators and witnessed that patient refused to sign papers and let this nurse remove IV. Security tried to talk patient into letting me remove IV. Patient got up and security installation technician's face and stated "NO" I am leaving. And to get the hell out of his way. Thanks Zaina number [phone]"
--- NOTE | 2017-05-25 07:57 | Electrocardiograph Report ---
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
== END 2017-05-23 21:20 | disposition left against medical advice (07) ==
LOC: EMEROO 11:27 → 3ANU 11:27
PROVIDERS: ADMIT Registered Nurse; ATTEND Registered Nurse

== ENCOUNTER 2021-09-08 13:17 | Observation (INO) ==
[2021-09-08] MEDS ORDERED: *HR* FentaNYL (PF) 100 MCG/2 ML VIAL IVP ONE ×2 (13:37→22:11)
[2021-09-08] MEDS ORDERED: *HR* Dextrose 50 % in Water (Syg) 50 ML SYRINGE IVP ONE (14:36)
[2021-09-08] MEDS ORDERED: *HR* Dextrose 50 % in Water (Syg) 50 ML SYRINGE ONE (14:39)
[2021-09-08] MEDS ORDERED: *HR* HYDROmorphone (PF) 1 MG/ML SYRINGE IVP ONE ×2 (15:18→17:03)
[2021-09-08 16:46] LABS: Basophils # 0.1 K/mcL (0.0-0.2); Basophils % 0.4 %; Eosinophils # 0.2 K/mcL (0.0-0.6); Eosinophils % 1.6 %; Hematocrit 35.9 % (37.5-50.1); Hemoglobin 11.5 g/dL (12.9-16.9); Immature Granulocytes % 0.6 % (0-4); Lymphocytes # 1.9 K/mcL (0.6-4.6); Lymphocytes % 14.1 %; Mean Corpuscular Volume 90.7 fL (83.0-100.0); Mean Platelet Volume 10.6 fL (9.4-12.4); Monocytes % 7.7 %; Neutrophils # 10.2 K/mcL (1.6-8.9); Platelet Count 220 K/mcL (140-400); Red Blood Count 3.96 M/mcL (4.19-5.50); Red Cell Distribution Width 13.7 % (11.5-14.5); Segmented Neutrophils % 75.6 %; White Blood Count 13.4 K/mcL (4.3-11.1)
[2021-09-08 17:05] LABS: BUN/Creatinine Ratio 16 (6-26); Blood Urea Nitrogen 21 mg/dL (8-23); Calcium 9.3 mg/dL (8.6-10.3); Carbon Dioxide 28 mEq/L (23-29); Chloride 105 mEq/L (98-107); Glucose 76 mg/dL (70-105); Osmolality,Calculated 290 (280-300); Potassium 4.5 mEq/L (3.5-5.1); Sodium 139 mEq/L (136-145); eGFR For African Americans > 60 (> 60); eGFR For Non-African Americans 55 (> 60)
[2021-09-08] MEDS ORDERED: Acetaminophen 325 MG TABLET PO PRN (20:29)
[2021-09-08] MEDS ORDERED: Melatonin 3 MG TABLET PO PRN (20:29)
[2021-09-08] MEDS ORDERED: Ondansetron 4 MG/2 ML VIAL IVP PRN (20:29)
[2021-09-08] MEDS ORDERED: Naloxone 0.4 MG/ML INJ IVP PRN (20:29)
[2021-09-08] MEDS ORDERED: 0.9 % Sodium Chloride 1,000 ML IVC SCH (20:30)
[2021-09-08] MEDS ORDERED: *HR* OxyCODONE/APAP 7.5/325 TABLET PO PRN (20:40)
[2021-09-08] MEDS ORDERED: *HR* Dextrose 50 % in Water (Syg) 50 ML SYRINGE IVP PRN (20:54)
[2021-09-08] MEDS ORDERED: Dextrose 4 GM Chewable Tablets PO PRN ×2 (20:54)
[2021-09-08] MEDS ORDERED: D5% in Water 1,000 ML IVC PRN (20:54)
[2021-09-08] MEDS ORDERED: Sennosides/Docusate Sodium TABLET PO SCH (21:00)
[2021-09-08] MEDS ORDERED: Morphine Sulfate ER (12 HR) 15 MG TABLET.ER PO SCH (21:00)
[2021-09-08] MEDS ORDERED: Pregabalin 75 MG CAPSULE PO SCH (22:00)
[2021-09-08] MEDS ORDERED: Saliva Stimulant 44.3ml BOTTLE PO PRN (22:01)
[2021-09-08] MEDS ORDERED: *HR* OxyCODONE/APAP 10/325 TABLET PO PRN (22:12)
[2021-09-08] MEDS ORDERED: *HR* HYDROmorphone (PF) 1 MG/ML SYRINGE IVP PRN (22:12)
[2021-09-08] MEDS ORDERED: Ipratropium/Albuterol Neb 3 ML IH PRN (23:23)
[2021-09-09 05:51] LABS: Basophils % 0.5 %; Eosinophils # 0.3 K/mcL (0.0-0.6); Eosinophils % 3.4 %; Hematocrit 34.8 % (37.5-50.1); Hemoglobin 10.9 g/dL (12.9-16.9); Immature Granulocytes % 0.3 % (0-4); Lymphocytes # 1.9 K/mcL (0.6-4.6); Lymphocytes % 22.2 %; Mean Corpuscular HGB Conc 31.3 g/dL (31.6-35.5); Mean Corpuscular Hemoglobin 28.5 pg (28.0-33.3); Mean Corpuscular Volume 90.9 fL (83.0-100.0); Mean Platelet Volume 10.4 fL (9.4-12.4); Monocytes % 11.9 %; Neutrophils # 5.4 K/mcL (1.6-8.9); Platelet Count 210 K/mcL (140-400); Red Blood Count 3.83 M/mcL (4.19-5.50); Red Cell Distribution Width 13.9 % (11.5-14.5); Segmented Neutrophils % 61.7 %; White Blood Count 8.7 K/mcL (4.3-11.1)
[2021-09-09 06:01] LABS: INR 1.1; Prothrombin Time 12.3 Seconds (9.4-12.1)
[2021-09-09 06:03] LABS: Activated Partial Thrombo Time 34.3 Seconds (26.0-36.0)
[2021-09-09 06:15] LABS: Chol/HDL Ratio 2.7 (0-4.9)
[2021-09-09 06:16] LABS: Alanine Aminotransferase 21 Units/L (7-52); Albumin 3.8 g/dL (3.5-5.7); Albumin/Globulin Ratio 1.4 (1.1-2.2); Alkaline Phosphatase 146 Units/L (34-104); Aspartate Amino Transferase 24 Units/L (13-39); BUN/Creatinine Ratio 16 (6-26); Bilirubin,Total 0.6 mg/dL (0.3-1.0); Blood Urea Nitrogen 19 mg/dL (8-23); Calcium 8.9 mg/dL (8.6-10.3); Carbon Dioxide 29 mEq/L (23-29); Chloride 106 mEq/L (98-107); Globulin 2.8 g/dL (2.4-3.5); Glucose 137 mg/dL (70-105); Magnesium 1.6 mg/dL (1.6-2.6); Osmolality,Calculated 294 (280-300); Phosphorous 4.3 mg/dL (2.7-4.5); Potassium 4.3 mEq/L (3.5-5.1); Sodium 140 mEq/L (136-145); Total Protein 6.6 g/dL (6.4-8.9); eGFR For African Americans > 60 (> 60); eGFR For Non-African Americans 60 (> 60)
[2021-09-09 06:24] LABS: Estimated Average Glucose 192 mg/dl; Hemoglobin A1C 8.3 %
[2021-09-09 06:26] LABS: Thyroid Stimulating Hormone 1.629 mcIU/mL (0.340-5.600)
[2021-09-09 06:37] LABS: Folate 10.7 ng/mL (3.0-16.0)
[2021-09-09] MEDS ORDERED: *HR* HYDROmorphone PF 0.5 MG/0.5 ML SYRINGE IVP PRN ×2 (08:52→12:24)
[2021-09-09] MEDS ORDERED: *HR* FentaNYL (PF) 100 MCG/2 ML VIAL IVP PRN (08:52)
[2021-09-09] MEDS ORDERED: Ropivacaine/PF 0.5% 30 ML VIAL ONE (08:55)
[2021-09-09] MEDS ORDERED: ROPIVACAINE/PF/NS 0.25% 1 EACH SYRINGE INTRAART ONE (08:56)
[2021-09-09] MEDS ORDERED: *HR* HYDROmorphone 2 MG/ML SYRINGE IVP ONE (08:58)
[2021-09-09] MEDS ORDERED: BuPROPion XL (24 HR) 150 MG TABLET PO SCH (09:00)
[2021-09-09] MEDS ORDERED: Multivit/Ca/Min/Fe/FA 1 TAB TABLET PO SCH (09:00)
[2021-09-09] MEDS ORDERED: polyethylene glycoL 3350 17 GM POWD.PACK PO SCH (09:00)
[2021-09-09] MEDS ORDERED: Aspirin 81 MG TAB.CHEW PO SCH (09:00)
[2021-09-09] MEDS ORDERED: Lidocaine -MPF 2% 2 ML VIAL ONE ×2 (09:05→09:06)
[2021-09-09] MEDS ORDERED: Ondansetron 4 MG/2 ML VIAL ONE (09:05)
[2021-09-09] MEDS ORDERED: *HR* FentaNYL (PF) 100 MCG/2 ML VIAL ONE (09:05)
[2021-09-09] MEDS ORDERED: Bupivacaine/EPI 1:200k 0.25% 50 ML VIAL ONE (09:06)
[2021-09-09] MEDS ORDERED: *HR* Propofol 200 MG/20 ML VIAL IVP ONE ×2 (09:06→10:45)
[2021-09-09] MEDS ORDERED: CeFAZolin Syr 2,000MG/20 ML 2,000 MG/20 ML SYRINGE IVPB ONE ×2 (09:09→12:24)
[2021-09-09] MEDS ORDERED: *HR* Midazolam HCl 2 MG/2 ML VIAL ONE (09:09)
[2021-09-09] MEDS ORDERED: Ringers Solution, Lactated 1,000 ML IVC SCH ×2 (09:15→12:24)
[2021-09-09] MEDS ORDERED: *HR* Heparin 5,000 UNIT/ML VIAL SQ SCH (12:00)
[2021-09-09] MEDS ORDERED: Ipratropium/Albuterol Neb 3 ML IH PRN (12:24)
[2021-09-09] MEDS ORDERED: *HR* HYDROmorphone (PF) 1 MG/ML SYRINGE IVP ONE (12:24)
[2021-09-09] MEDS ORDERED: Saliva Stimulant 44.3ml BOTTLE PO PRN (12:24)
[2021-09-09] MEDS ORDERED: Dextrose 4 GM Chewable Tablets PO PRN ×2 (12:24)
[2021-09-09] MEDS ORDERED: Melatonin 3 MG TABLET PO PRN (12:24)
[2021-09-09] MEDS ORDERED: Ondansetron 4 MG/2 ML VIAL IVP PRN (12:24)
[2021-09-09] MEDS ORDERED: *HR* Dextrose 50 % in Water (Syg) 50 ML SYRINGE IVP PRN (12:24)
[2021-09-09] MEDS ORDERED: D5% in Water 1,000 ML IVC PRN (12:24)
[2021-09-09] MEDS ORDERED: Acetaminophen 325 MG TABLET PO PRN (12:24)
[2021-09-09] MEDS ORDERED: *HR* OxyCODONE/APAP 10/325 TABLET PO PRN (12:24)
[2021-09-09] MEDS ORDERED: Naloxone 0.4 MG/ML INJ IVP PRN (12:24)
[2021-09-09 13:27] LABS: VBG Ionized Calcium 1.19 mmol/L (1.15-1.35)
[2021-09-09] MEDS: *HR* HYDROmorphone 2 MG/ML SYRINGE IVP PRN (14:38)
[2021-09-09] MEDS ORDERED: CeFAZolin 2,000 MG/120 ML BAG IVPB SCH (16:00)
[2021-09-09] MEDS: ceFAZolin 2,000 MG in 0.9 % Sodium Chloride 100 ML IVPB SCH (17:31)
[2021-09-09] MEDS: Insulin LISPRO 300 UNITS/3 ML VIAL SUBQ SCH (17:57)
[2021-09-09] MEDS: Cholecalciferol (D-3) 1,000 UNIT (25MCG) TABLET PO SCH (20:42)
[2021-09-09] MEDS: *HR* Heparin 5,000 UNIT/ML VIAL SQ SCH (20:42)
[2021-09-09] MEDS: Pregabalin 75 MG CAPSULE PO SCH (20:43)
[2021-09-09] MEDS: Sennosides/Docusate Sodium TABLET PO SCH (20:43)
[2021-09-09] MEDS: Morphine Sulfate ER (12 HR) 30 MG TABLET.ER PO SCH (20:43)
[2021-09-09 21:26] LABS: Bilirubin,Urine Negative (Negative); Blood,Urine Negative (Negative); Clarity,Urine Clear (Clear); Color,Urine Light-Yellow (Yellow); Glucose,Urine (UA) 500 mg/dL (Normal); Ketones,Urine Negative (Negative); Leukocyte Esterase,Urine Negative (Negative); Nitrite,Urine Negative (Negative); Protein,Urine Negative (Neg-Trace); RBC,Urine 0-3 per hpf (0-3); Specific Gravity,Urine 1.016 (1.010-1.025); Urobilinogen,Urine Normal (Normal)
[2021-09-10] MEDS: ceFAZolin 2,000 MG in 0.9 % Sodium Chloride 100 ML IVPB SCH (00:16)
[2021-09-10 03:23] LABS: ABG Base Excess 1 mEq/L (-2 to 3); ABG HCO3 25 mEq/L (21-27); ABG Oxygen Saturation 94 % (95-98); ABG PCO2 38 mmHg (35-45); ABG PH 7.44 pH Units (7.32-7.45); ABG PO2 69 mmHg (85-104); ABG TCO2 27 mEq/L (20-26)
[2021-09-10] MEDS: *HR* Heparin 5,000 UNIT/ML VIAL SQ SCH ×3 (03:45→22:28)
[2021-09-10] MEDS: Morphine Sulfate ER (12 HR) 30 MG TABLET.ER PO SCH ×2 (08:22→22:25)
[2021-09-10] MEDS: Pregabalin 75 MG CAPSULE PO SCH ×2 (08:22→22:25)
[2021-09-10] MEDS: Sennosides/Docusate Sodium TABLET PO SCH ×2 (08:22→22:25)
[2021-09-10] MEDS: Multivit/Ca/Min/Fe/FA 1 TAB TABLET PO SCH (08:23)
[2021-09-10] MEDS: Cyanocobalamin (B-12) 1,000 MCG TABLET PO SCH (08:23)
[2021-09-10] MEDS: Insulin LISPRO 300 UNITS/3 ML VIAL SUBQ SCH ×3 (08:24→17:52)
[2021-09-10] MEDS: Aspirin 81 MG TAB.CHEW PO SCH (08:24)
[2021-09-10] MEDS: BuPROPion XL (24 HR) 150 MG TABLET PO SCH (08:24)
[2021-09-10] MEDS: polyethylene glycoL 3350 17 GM POWD.PACK PO SCH (08:24)
[2021-09-10] MEDS: amLODIPine 5 MG TABLET PO SCH (08:28)
[2021-09-10 09:32] LABS: BUN/Creatinine Ratio 17 (6-26); Blood Urea Nitrogen 21 mg/dL (8-23); Calcium 9.6 mg/dL (8.6-10.3); Carbon Dioxide 29 mEq/L (23-29); Chloride 102 mEq/L (98-107); Glucose 242 mg/dL (70-105); Osmolality,Calculated 297 (280-300); Potassium 5.4 mEq/L (3.5-5.1); Sodium 138 mEq/L (136-145); eGFR For African Americans > 60 (> 60); eGFR For Non-African Americans 60 (> 60)
[2021-09-10] MEDS: *HR* HYDROmorphone 2 MG/ML SYRINGE IVP PRN ×2 (12:30→18:04)
[2021-09-10] MEDS ORDERED: polyethylene glycoL 3350 17 GM POWD.PACK PO PRN (14:32)
[2021-09-10 19:03] VITALS: O2SAT 96
[2021-09-10] MEDS: Cholecalciferol (D-3) 1,000 UNIT (25MCG) TABLET PO SCH (22:25)
[2021-09-11] MEDS: *HR* HYDROmorphone 2 MG/ML SYRINGE IVP PRN (01:32)
[2021-09-11] MEDS: Pregabalin 75 MG CAPSULE PO SCH (08:25)
[2021-09-11] MEDS: Morphine Sulfate ER (12 HR) 30 MG TABLET.ER PO SCH (08:25)
[2021-09-11] MEDS: Cyanocobalamin (B-12) 1,000 MCG TABLET PO SCH (08:26)
[2021-09-11] MEDS: amLODIPine 5 MG TABLET PO SCH (08:26)
[2021-09-11] MEDS: Aspirin 81 MG TAB.CHEW PO SCH (08:26)
[2021-09-11] MEDS: Sennosides/Docusate Sodium TABLET PO SCH (08:26)
[2021-09-11] MEDS: Multivit/Ca/Min/Fe/FA 1 TAB TABLET PO SCH (08:27)
[2021-09-11] MEDS: BuPROPion XL (24 HR) 150 MG TABLET PO SCH (08:28)
[2021-09-11] MEDS: polyethylene glycoL 3350 17 GM POWD.PACK PO SCH (08:30)
[2021-09-11] MEDS: Insulin LISPRO 300 UNITS/3 ML VIAL SUBQ SCH (08:32)
[2021-09-11 08:46] VITALS: BP 146/73; PULSE 74; TEMP 97.9
[2021-09-11] MEDS ORDERED: *HR* HYDROmorphone 2 MG TABLET PO PRN (18:06)
[2021-09-11] MEDS ORDERED: Ketorolac 30 MG/ML VIAL IM PRN (18:07)
== END 2021-09-11 11:54 | disposition other institution (70) ==
LOC: EMEROOARM 13:17 → 4WAOSI 13:17 → SUATTDRO 19:33 → 4WAOSI 20:18 → SUATTDRO 20:29
PROVIDERS: ADMIT Internal Medicine; ATTEND Internal Medicine

== ENCOUNTER 2021-10-14 14:55 | Inpatient (IN) ==
[2021-10-14] MEDS ORDERED: Cefepime HCl 2,000 MG in 0.9 % Sodium Chloride 10 ML IVP ONE (15:15)
[2021-10-14] MEDS ORDERED: Ondansetron 4 MG/2 ML VIAL IVP ONE (15:17)
[2021-10-14 15:48] LABS: Bacteria,Urine Few per hpf (None-Few); Bilirubin,Urine Negative (Negative); Blood,Urine Small (Negative); Clarity,Urine Turbid (Clear); Color,Urine Yellow (Yellow); Glucose,Urine (UA) Normal (Normal); Ketones,Urine Trace mg/dL (Negative); Leukocyte Esterase,Urine Large (Negative); Mucus,Urine Few per lpf (None-Few); Nitrite,Urine Positive (Negative); Protein,Urine 70 mg/dL (Neg-Trace); WBC,Urine TNTC per hpf (0-3)
[2021-10-14] MEDS: 0.9 % Sodium Chloride 1,000 ML IVC SCH ×2 (16:09→21:40)
[2021-10-14 16:22] LABS: VBG HCO3 25 mEq/L (21-27); VBG PCO2 38 mmHg (41-51); VBG PH 7.42 pH Units (7.32-7.42); VBG PO2 41 mmHg (25-50)
[2021-10-14 16:31] LABS: Basophils % 0.2 %; Eosinophils % 0.2 %; Hematocrit 23.6 % (37.5-50.1); Hemoglobin 7.6 g/dL (12.9-16.9); Immature Granulocytes % 0.4 % (0-4); Lymphocytes # 1.1 K/mcL (0.6-4.6); Lymphocytes % 8.3 %; Mean Corpuscular HGB Conc 32.2 g/dL (31.6-35.5); Mean Corpuscular Hemoglobin 27.7 pg (28.0-33.3); Mean Corpuscular Volume 86.1 fL (83.0-100.0); Mean Platelet Volume 10.2 fL (9.4-12.4); Monocytes % 7.9 %; Neutrophils # 10.6 K/mcL (1.6-8.9); Platelet Count 295 K/mcL (140-400); Red Blood Count 2.74 M/mcL (4.19-5.50); White Blood Count 12.7 K/mcL (4.3-11.1)
[2021-10-14] MEDS ORDERED: Morphine Sulfate 2 MG/ML SYRINGE IVP ONE (16:35)
[2021-10-14 17:02] LABS: Alanine Aminotransferase 81 Units/L (7-52); Albumin 3.2 g/dL (3.5-5.7); Albumin/Globulin Ratio 0.9 (1.1-2.2); Alkaline Phosphatase 208 Units/L (34-104); Aspartate Amino Transferase 123 Units/L (13-39); BUN/Creatinine Ratio 17 (6-26); Bilirubin,Direct 0.3 mg/dL (0.0-0.2); Bilirubin,Indirect 0.6 mg/dL (0.0-1.0); Bilirubin,Total 0.9 mg/dL (0.3-1.0); Blood Urea Nitrogen 18 mg/dL (8-23); Calcium 8.9 mg/dL (8.6-10.3); Carbon Dioxide 26 mEq/L (23-29); Chloride 94 mEq/L (98-107); Globulin 3.4 g/dL (2.4-3.5); Glucose 223 mg/dL (70-105); Lipase 8 Units/L (11-82); Magnesium 0.9 mg/dL (1.6-2.6); Osmolality,Calculated 279 (280-300); Phosphorous 2.6 mg/dL (2.7-4.5); Potassium 4.1 mEq/L (3.5-5.1); Sodium 130 mEq/L (136-145); Total Protein 6.6 g/dL (6.4-8.9); eGFR For African Americans > 60 (> 60); eGFR For Non-African Americans > 60 (> 60)
[2021-10-14 17:03] LABS: Troponin I < 0.03 ng/mL (< 0.04)
[2021-10-14] MEDS ORDERED: QUEtiapine Fumarate 25 MG TABLET PO ONE (17:15)
[2021-10-14 17:21] LABS: C-Reactive Protein > 300 mg/L (Less than 10)
[2021-10-14 17:46] LABS: INR 1.4; Prothrombin Time 15.2 Seconds (9.4-12.1)
[2021-10-14 18:00] LABS: Activated Partial Thrombo Time 31.2 Seconds (26.0-36.0)
[2021-10-14] MEDS ORDERED: QUEtiapine Fumarate 100 MG TABLET PO ONE (19:00)
[2021-10-14 19:06] LABS: Influenza A PCR Negative (Negative); Influenza B PCR Negative (Negative); Resp. Syncytial Virus PCR Negative (Negative)
[2021-10-14 19:07] LABS: SARS-CoV-2 by PCR (In House) Negative (Negative)
[2021-10-15] MEDS ORDERED: Ondansetron 4 MG/2 ML VIAL IVP PRN (03:49)
[2021-10-15] MEDS ORDERED: Naloxone 0.4 MG/ML INJ IVP PRN (03:49)
[2021-10-15] MEDS ORDERED: D5% in Water 1,000 ML IVC PRN (04:03)
[2021-10-15] MEDS ORDERED: *HR* Dextrose 50 % in Water (Syg) 50 ML SYRINGE IVP PRN (04:03)
[2021-10-15] MEDS ORDERED: Dextrose Gel 15 GM/37.5 ML TUBE PO PRN ×2 (04:03)
[2021-10-15] MEDS: 0.9 % Sodium Chloride 1,000 ML IVC SCH ×2 (05:12→12:47)
[2021-10-15] MEDS ORDERED: Nicotine 7 MG PATCH.TD24 TD PRN (06:05)
[2021-10-15] MEDS: *HR* Enoxaparin 40 MG/0.4 ML SYRINGE SQ SCH (07:04)
[2021-10-15] MEDS: Insulin LISPRO 300 UNITS/3 ML VIAL SUBQ SCH ×3 (07:04→19:19)
[2021-10-15 07:08] LABS: Hematocrit 23.6 % (37.5-50.1); Hemoglobin 7.5 g/dL (12.9-16.9); Mean Corpuscular HGB Conc 31.8 g/dL (31.6-35.5); Mean Corpuscular Hemoglobin 27.2 pg (28.0-33.3); Mean Corpuscular Volume 85.5 fL (83.0-100.0); Mean Platelet Volume 10.3 fL (9.4-12.4); Platelet Count 335 K/mcL (140-400); Red Blood Count 2.76 M/mcL (4.19-5.50); White Blood Count 15.7 K/mcL (4.3-11.1)
[2021-10-15 07:39] LABS: Acetaminophen < 10 mcg/mL (10-20); Alanine Aminotransferase 81 Units/L (7-52); Albumin 2.8 g/dL (3.5-5.7); Albumin/Globulin Ratio 0.9 (1.1-2.2); Alkaline Phosphatase 189 Units/L (34-104); Aspartate Amino Transferase 99 Units/L (13-39); BUN/Creatinine Ratio 15 (6-26); Bilirubin,Total 0.9 mg/dL (0.3-1.0); Blood Urea Nitrogen 14 mg/dL (8-23); Calcium 8.4 mg/dL (8.6-10.3); Carbon Dioxide 23 mEq/L (23-29); Chloride 98 mEq/L (98-107); Globulin 3.1 g/dL (2.4-3.5); Glucose 192 mg/dL (70-105); Osmolality,Calculated 280 (280-300); Potassium 3.9 mEq/L (3.5-5.1); Salicylate < 2.5 mg/dL (15.0-30.0); Sodium 132 mEq/L (136-145); Thyroid Stimulating Hormone 0.985 mcIU/mL (0.340-5.600); Total Protein 5.9 g/dL (6.4-8.9); eGFR For African Americans > 60 (> 60); eGFR For Non-African Americans > 60 (> 60)
[2021-10-15 07:51] LABS: Folate 16.8 ng/mL (3.0-16.0)
[2021-10-15] MEDS: Cefepime HCl 2,000 MG in 0.9 % Sodium Chloride 20 ML IVP SCH ×2 (09:51→16:48)
[2021-10-15 11:57] LABS: A.calcoaceticus-baumannii cplx Not Detected (Not Detect); Bacteroides fragilis by PCR Not Detected (Not Detect); Candida albicans by PCR Not Detected (Not Detect); Candida auris by PCR Not Detected (Not Detect); Candida glabrata by PCR Not Detected (Not Detect); Candida krusei by PCR Not Detected (Not Detect); Candida parapsilosis by PCR Not Detected (Not Detect); Candida tropicalis by PCR Not Detected (Not Detect); Crypto. neoformans/gattii PCR Not Detected (Not Detect); Enterobacter cloacae Cmplx PCR Not Detected (Not Detect); Enterobacterales by PCR Not Detected (Not Detect); Enterococcus faecalis by PCR Not Detected (Not Detect); Enterococcus faecium by PCR Not Detected (Not Detect); Escherichia coli by PCR Not Detected (Not Detect); Klebs. pneumoniae group by PCR Not Detected (Not Detect); Klebsiella aerogenes by PCR Not Detected (Not Detect); Klebsiella oxytoca by PCR Not Detected (Not Detect); Proteus by PCR Not Detected (Not Detect); Pseudomonas aeruginosa by PCR Not Detected (Not Detect); Salmonella species by PCR Not Detected (Not Detect); Serratia marcescens by PCR Not Detected (Not Detect); Staph epidermidis by PCR Not Detected (Not Detect); Staph lugdunensis by PCR Not Detected (Not Detect); Staphylococcus aureus by PCR DETECTED (Not Detect); Stenotrophomonas maltophilia Not Detected (Not Detect); Streptococcus agalactiae(B)PCR Not Detected (Not Detect); Streptococcus by PCR Not Detected (Not Detect); Streptococcus pneumoniae PCR Not Detected (Not Detect); Streptococcus pyogenes (A) PCR Not Detected (Not Detect); mecA/C & MREJ (MRSA) Gene DETECTED (Not Detect)
[2021-10-15] MEDS: *HR* HYDROmorphone (PF) 1 MG/ML SYRINGE IVP PRN (16:50)
[2021-10-15] MEDS ORDERED: *HR* HYDROcodone/Acet 10/325 mg TABLET PO PRN (19:32)
[2021-10-15] MEDS: QUEtiapine Fumarate 100 MG TABLET PO SCH (21:02)
[2021-10-16] MEDS: Cefepime HCl 2,000 MG in 0.9 % Sodium Chloride 20 ML IVP SCH ×3 (00:14→16:21)
[2021-10-16] MEDS: 0.9 % Sodium Chloride 1,000 ML IVC SCH ×3 (00:15→22:12)
[2021-10-16] MEDS: Insulin LISPRO 300 UNITS/3 ML VIAL SUBQ SCH ×4 (00:57→18:39)
[2021-10-16 03:52] LABS: Basophils % 0.3 %; Eosinophils # 0.4 K/mcL (0.0-0.6); Eosinophils % 3.5 %; Hematocrit 23.2 % (37.5-50.1); Hemoglobin 7.1 g/dL (12.9-16.9); Immature Granulocytes % 0.5 % (0-4); Lymphocytes # 1.7 K/mcL (0.6-4.6); Lymphocytes % 13.9 %; Mean Corpuscular HGB Conc 30.6 g/dL (31.6-35.5); Mean Corpuscular Hemoglobin 26.5 pg (28.0-33.3); Mean Corpuscular Volume 86.6 fL (83.0-100.0); Mean Platelet Volume 10.3 fL (9.4-12.4); Monocytes # 0.9 K/mcL (0.0-1.3); Neutrophils # 9.1 K/mcL (1.6-8.9); Platelet Count 369 K/mcL (140-400); Red Blood Count 2.68 M/mcL (4.19-5.50); Red Cell Distribution Width 15.2 % (11.5-14.5); Segmented Neutrophils % 74.8 %; White Blood Count 12.2 K/mcL (4.3-11.1)
[2021-10-16] MEDS ORDERED: Vancomycin 1,250 MG/262.5 ML IV.SOLN IVPB SCH (04:30)
[2021-10-16 05:04] LABS: Alanine Aminotransferase 95 Units/L (7-52); Albumin 2.7 g/dL (3.5-5.7); Albumin/Globulin Ratio 0.9 (1.1-2.2); Alkaline Phosphatase 169 Units/L (34-104); Aspartate Amino Transferase 102 Units/L (13-39); BUN/Creatinine Ratio 16 (6-26); Bilirubin,Total 0.6 mg/dL (0.3-1.0); Blood Urea Nitrogen 14 mg/dL (8-23); Calcium 8.4 mg/dL (8.6-10.3); Carbon Dioxide 25 mEq/L (23-29); Chloride 103 mEq/L (98-107); Globulin 2.9 g/dL (2.4-3.5); Glucose 163 mg/dL (70-105); Osmolality,Calculated 284 (280-300); Potassium 3.4 mEq/L (3.5-5.1); Sodium 135 mEq/L (136-145); Total Protein 5.6 g/dL (6.4-8.9); eGFR For African Americans > 60 (> 60); eGFR For Non-African Americans > 60 (> 60)
[2021-10-16] MEDS: Morphine Sulfate ER (12 HR) 30 MG TABLET.ER PO SCH ×2 (05:10→18:38)
[2021-10-16] MEDS: *HR* Enoxaparin 40 MG/0.4 ML SYRINGE SQ SCH (05:10)
[2021-10-16] MEDS ORDERED: Perflutren Lipid Microsphere 1.3 ML in 0.9 % Sodium Chloride 8.7 ML IVP PRN (08:40)
[2021-10-16] MEDS: Cholecalciferol (D-3) 1,000 UNIT (25MCG) TABLET PO SCH (09:11)
[2021-10-16] MEDS: Cyanocobalamin (B-12) 1,000 MCG TABLET PO SCH (09:12)
[2021-10-16] MEDS: Aspirin Enteric Coated 81 MG Tablet PO SCH (09:12)
[2021-10-16] MEDS: BuPROPion XL (24 HR) 150 MG TABLET PO SCH (09:12)
[2021-10-16] MEDS: *HR* HYDROmorphone (PF) 1 MG/ML SYRINGE IVP PRN ×2 (11:02→20:58)
[2021-10-16] MEDS: Vancomycin 1,250 MG/262.5 ML IV.SOLN IVPB SCH (17:50)
[2021-10-16] MEDS: QUEtiapine Fumarate 100 MG TABLET PO SCH (20:47)
[2021-10-16] MEDS: Insulin DETEMIR 100 UNIT/ML X5UNITS SUBQ SCH (20:48)
[2021-10-16] MEDS ORDERED: 0.9 % Sodium Chloride 500 ML ONE (21:56)
[2021-10-17] MEDS: Insulin LISPRO 300 UNITS/3 ML VIAL SUBQ SCH ×4 (01:48→17:52)
[2021-10-17] MEDS: Cefepime HCl 2,000 MG in 0.9 % Sodium Chloride 20 ML IVP SCH ×3 (02:38→17:51)
[2021-10-17] MEDS: 0.9 % Sodium Chloride 1,000 ML IVC SCH ×3 (02:39→17:49)
[2021-10-17 05:37] LABS: Basophils % 0.4 %; Eosinophils # 0.6 K/mcL (0.0-0.6); Eosinophils % 5.6 %; Hematocrit 23.7 % (37.5-50.1); Hemoglobin 7.5 g/dL (12.9-16.9); Immature Granulocytes % 0.4 % (0-4); Lymphocytes # 2.1 K/mcL (0.6-4.6); Lymphocytes % 18.4 %; Mean Corpuscular HGB Conc 31.6 g/dL (31.6-35.5); Mean Corpuscular Hemoglobin 27.6 pg (28.0-33.3); Mean Corpuscular Volume 87.1 fL (83.0-100.0); Mean Platelet Volume 9.7 fL (9.4-12.4); Monocytes # 0.7 K/mcL (0.0-1.3); Monocytes % 6.6 %; Neutrophils # 7.7 K/mcL (1.6-8.9); Platelet Count 382 K/mcL (140-400); Red Blood Count 2.72 M/mcL (4.19-5.50); Red Cell Distribution Width 15.3 % (11.5-14.5); Segmented Neutrophils % 68.6 %; White Blood Count 11.2 K/mcL (4.3-11.1)
[2021-10-17 05:56] LABS: Alanine Aminotransferase 181 Units/L (7-52); Albumin 2.6 g/dL (3.5-5.7); Albumin/Globulin Ratio 0.9 (1.1-2.2); Alkaline Phosphatase 241 Units/L (34-104); Aspartate Amino Transferase 175 Units/L (13-39); BUN/Creatinine Ratio 14 (6-26); Bilirubin,Total 0.6 mg/dL (0.3-1.0); Blood Urea Nitrogen 12 mg/dL (8-23); Calcium 8.5 mg/dL (8.6-10.3); Carbon Dioxide 28 mEq/L (23-29); Chloride 105 mEq/L (98-107); Globulin 2.8 g/dL (2.4-3.5); Glucose 123 mg/dL (70-105); Osmolality,Calculated 285 (280-300); Potassium 3.6 mEq/L (3.5-5.1); Sodium 137 mEq/L (136-145); Total Protein 5.4 g/dL (6.4-8.9); eGFR For African Americans > 60 (> 60); eGFR For Non-African Americans > 60 (> 60)
[2021-10-17 05:59] LABS: % Iron Saturation 6 % (20-55); Iron 14 mcg/dL (65-175); Transferrin 155 mg/dL (203-362)
[2021-10-17 06:10] LABS: Ferritin 211 ng/mL (20-250)
[2021-10-17] MEDS: *HR* Enoxaparin 40 MG/0.4 ML SYRINGE SQ SCH (06:25)
[2021-10-17] MEDS: Vancomycin 1,250 MG/262.5 ML IV.SOLN IVPB SCH ×2 (06:25→18:02)
[2021-10-17] MEDS: Morphine Sulfate ER (12 HR) 30 MG TABLET.ER PO SCH ×2 (06:26→17:51)
[2021-10-17] MEDS: BuPROPion XL (24 HR) 150 MG TABLET PO SCH (08:31)
[2021-10-17] MEDS: Cyanocobalamin (B-12) 1,000 MCG TABLET PO SCH (08:31)
[2021-10-17] MEDS: Cholecalciferol (D-3) 1,000 UNIT (25MCG) TABLET PO SCH (08:31)
[2021-10-17] MEDS: Aspirin Enteric Coated 81 MG Tablet PO SCH (08:31)
[2021-10-17] MEDS: QUEtiapine Fumarate 100 MG TABLET PO SCH (20:20)
[2021-10-17] MEDS: Insulin DETEMIR 100 UNIT/ML X5UNITS SUBQ SCH (20:21)
[2021-10-17] MEDS: *HR* HYDROmorphone (PF) 1 MG/ML SYRINGE IVP PRN (20:26)
[2021-10-18] MEDS: Cefepime HCl 2,000 MG in 0.9 % Sodium Chloride 20 ML IVP SCH ×4 (00:05→23:55)
[2021-10-18] MEDS: 0.9 % Sodium Chloride 1,000 ML IVC SCH ×2 (02:03)
[2021-10-18] MEDS: *HR* Enoxaparin 40 MG/0.4 ML SYRINGE SQ SCH (05:39)
[2021-10-18] MEDS: Vancomycin 1,250 MG/262.5 ML IV.SOLN IVPB SCH ×2 (05:39→17:05)
[2021-10-18] MEDS: Morphine Sulfate ER (12 HR) 30 MG TABLET.ER PO SCH ×2 (05:39→17:04)
[2021-10-18 06:04] LABS: Basophils % 0.4 %; Eosinophils # 0.7 K/mcL (0.0-0.6); Eosinophils % 6.6 %; Hematocrit 23.3 % (37.5-50.1); Hemoglobin 7.3 g/dL (12.9-16.9); Lymphocytes # 1.8 K/mcL (0.6-4.6); Lymphocytes % 17.1 %; Mean Corpuscular HGB Conc 31.3 g/dL (31.6-35.5); Mean Corpuscular Hemoglobin 27.4 pg (28.0-33.3); Mean Corpuscular Volume 87.6 fL (83.0-100.0); Mean Platelet Volume 9.1 fL (9.4-12.4); Monocytes # 0.7 K/mcL (0.0-1.3); Monocytes % 6.9 %; Neutrophils # 7.2 K/mcL (1.6-8.9); Platelet Count 464 K/mcL (140-400); Red Blood Count 2.66 M/mcL (4.19-5.50); Red Cell Distribution Width 15.5 % (11.5-14.5); White Blood Count 10.5 K/mcL (4.3-11.1)
[2021-10-18 06:16] LABS: Alanine Aminotransferase 128 Units/L (7-52); Albumin 2.6 g/dL (3.5-5.7); Albumin/Globulin Ratio 0.9 (1.1-2.2); Alkaline Phosphatase 263 Units/L (34-104); Aspartate Amino Transferase 57 Units/L (13-39); BUN/Creatinine Ratio 13 (6-26); Bilirubin,Direct 0.2 mg/dL (0.0-0.2); Bilirubin,Indirect 0.3 mg/dL (0.0-1.0); Bilirubin,Total 0.5 mg/dL (0.3-1.0); Blood Urea Nitrogen 11 mg/dL (8-23); Calcium 8.5 mg/dL (8.6-10.3); Carbon Dioxide 26 mEq/L (23-29); Chloride 104 mEq/L (98-107); Globulin 2.8 g/dL (2.4-3.5); Glucose 150 mg/dL (70-105); Magnesium 1.1 mg/dL (1.6-2.6); Osmolality,Calculated 282 (280-300); Potassium 3.8 mEq/L (3.5-5.1); Sodium 135 mEq/L (136-145); Total Protein 5.4 g/dL (6.4-8.9); eGFR For African Americans > 60 (> 60); eGFR For Non-African Americans > 60 (> 60)
[2021-10-18 06:42] LABS: Hepatitis B Surface Antigen Nonreactive (Nonreactive)
[2021-10-18 07:11] LABS: Hepatitis A Antibody IgM Nonreactive (Nonreactive); Hepatitis C Virus Antibody Nonreactive (Nonreactive)
[2021-10-18] MEDS: Insulin LISPRO 300 UNITS/3 ML VIAL SUBQ SCH ×3 (07:58→17:06)
[2021-10-18] MEDS: BuPROPion XL (24 HR) 150 MG TABLET PO SCH (07:59)
[2021-10-18] MEDS: Aspirin Enteric Coated 81 MG Tablet PO SCH (08:00)
[2021-10-18] MEDS: Cyanocobalamin (B-12) 1,000 MCG TABLET PO SCH (08:00)
[2021-10-18] MEDS: Cholecalciferol (D-3) 1,000 UNIT (25MCG) TABLET PO SCH (08:00)
[2021-10-18] MEDS: *HR* HYDROmorphone (PF) 1 MG/ML SYRINGE IVP PRN ×2 (08:01→12:23)
[2021-10-18 10:07] LABS: Estimated Average Glucose 163 mg/dl; Hemoglobin A1C 7.3 %
[2021-10-18] MEDS ORDERED: Ondansetron 4 MG/2 ML VIAL IVP PRN (11:21)
[2021-10-18] MEDS: QUEtiapine Fumarate 100 MG TABLET PO SCH (20:20)
[2021-10-18] MEDS: Insulin DETEMIR 100 UNIT/ML X5UNITS SUBQ SCH (20:20)
[2021-10-19] MEDS: *HR* Enoxaparin 40 MG/0.4 ML SYRINGE SQ SCH (05:59)
[2021-10-19] MEDS: Vancomycin 1,250 MG/262.5 ML IV.SOLN IVPB SCH ×2 (06:00→19:36)
[2021-10-19] MEDS: Morphine Sulfate ER (12 HR) 30 MG TABLET.ER PO SCH ×2 (06:00→19:37)
[2021-10-19 06:17] LABS: Basophils % 0.3 %; Eosinophils # 0.5 K/mcL (0.0-0.6); Eosinophils % 4.6 %; Hematocrit 23.9 % (37.5-50.1); Hemoglobin 7.6 g/dL (12.9-16.9); Immature Granulocytes % 1.6 % (0-4); Lymphocytes # 1.8 K/mcL (0.6-4.6); Lymphocytes % 16.1 %; Mean Corpuscular HGB Conc 31.8 g/dL (31.6-35.5); Mean Corpuscular Hemoglobin 27.6 pg (28.0-33.3); Mean Corpuscular Volume 86.9 fL (83.0-100.0); Monocytes # 0.9 K/mcL (0.0-1.3); Monocytes % 8.1 %; Neutrophils # 7.8 K/mcL (1.6-8.9); Platelet Count 584 K/mcL (140-400); Red Blood Count 2.75 M/mcL (4.19-5.50); Red Cell Distribution Width 15.5 % (11.5-14.5); Segmented Neutrophils % 69.3 %; White Blood Count 11.2 K/mcL (4.3-11.1)
[2021-10-19 06:35] LABS: Alanine Aminotransferase 101 Units/L (7-52); Albumin 2.7 g/dL (3.5-5.7); Albumin/Globulin Ratio 0.9 (1.1-2.2); Alkaline Phosphatase 267 Units/L (34-104); Aspartate Amino Transferase 35 Units/L (13-39); BUN/Creatinine Ratio 9 (6-26); Bilirubin,Direct 0.2 mg/dL (0.0-0.2); Bilirubin,Indirect 0.4 mg/dL (0.0-1.0); Bilirubin,Total 0.6 mg/dL (0.3-1.0); Blood Urea Nitrogen 8 mg/dL (8-23); Calcium 8.8 mg/dL (8.6-10.3); Carbon Dioxide 29 mEq/L (23-29); Chloride 102 mEq/L (98-107); Globulin 3.1 g/dL (2.4-3.5); Glucose 202 mg/dL (70-105); Magnesium 1.3 mg/dL (1.6-2.6); Osmolality,Calculated 284 (280-300); Potassium 3.6 mEq/L (3.5-5.1); Sodium 135 mEq/L (136-145); Total Protein 5.8 g/dL (6.4-8.9); eGFR For African Americans > 60 (> 60); eGFR For Non-African Americans > 60 (> 60)
[2021-10-19] MEDS: *HR* HYDROmorphone (PF) 1 MG/ML SYRINGE IVP PRN (08:33)
[2021-10-19] MEDS: Cefepime HCl 2,000 MG in 0.9 % Sodium Chloride 20 ML IVP SCH ×2 (08:35→19:05)
[2021-10-19] MEDS: BuPROPion XL (24 HR) 150 MG TABLET PO SCH (08:36)
[2021-10-19] MEDS: Cholecalciferol (D-3) 1,000 UNIT (25MCG) TABLET PO SCH (08:36)
[2021-10-19] MEDS: Cyanocobalamin (B-12) 1,000 MCG TABLET PO SCH (08:36)
[2021-10-19] MEDS: Aspirin Enteric Coated 81 MG Tablet PO SCH (08:36)
[2021-10-19] MEDS: Insulin LISPRO 300 UNITS/3 ML VIAL SUBQ SCH ×3 (08:39→19:06)
[2021-10-19] MEDS ORDERED: Lidocaine Viscous Oral Soln 15 ML SOLUTION MM PRN (09:21)
[2021-10-19] MEDS ORDERED: 0.9 % Sodium Chloride 500 ML IVC ONE (09:21)
[2021-10-19] MEDS ORDERED: *HR* FentaNYL (PF) 100 MCG/2 ML VIAL IVP PRN (09:23)
[2021-10-19] MEDS: *HR* Midazolam HCl 5 MG/5 ML VIAL IVP PRN ×2 (10:05→10:10)
[2021-10-19] MEDS ORDERED: *HR* LORazepam 2 MG/ML VIAL IVP ONE (11:15)
[2021-10-19] MEDS ORDERED: Lidocaine -MPF 1% 5 ML AMPUL INFILT ONE (13:25)
[2021-10-19] MEDS: Insulin DETEMIR 100 UNIT/ML X5UNITS SUBQ SCH (21:30)
[2021-10-19] MEDS: QUEtiapine Fumarate 100 MG TABLET PO SCH (21:30)
[2021-10-20] MEDS: Cefepime HCl 2,000 MG in 0.9 % Sodium Chloride 20 ML IVP SCH ×4 (02:59→23:50)
[2021-10-20] MEDS: *HR* Enoxaparin 40 MG/0.4 ML SYRINGE SQ SCH (05:35)
[2021-10-20] MEDS: Morphine Sulfate ER (12 HR) 30 MG TABLET.ER PO SCH ×2 (05:36→17:37)
[2021-10-20 06:00] LABS: Basophils % 0.3 %; Eosinophils # 0.6 K/mcL (0.0-0.6); Eosinophils % 5.4 %; Hematocrit 23.7 % (37.5-50.1); Hemoglobin 7.3 g/dL (12.9-16.9); Immature Granulocytes % 1.8 % (0-4); Lymphocytes # 2.1 K/mcL (0.6-4.6); Lymphocytes % 20.5 %; Mean Corpuscular HGB Conc 30.8 g/dL (31.6-35.5); Mean Corpuscular Volume 87.8 fL (83.0-100.0); Monocytes # 0.8 K/mcL (0.0-1.3); Monocytes % 8.1 %; Neutrophils # 6.6 K/mcL (1.6-8.9); Platelet Count 661 K/mcL (140-400); Red Cell Distribution Width 15.7 % (11.5-14.5); Segmented Neutrophils % 63.9 %; White Blood Count 10.3 K/mcL (4.3-11.1)
[2021-10-20 06:17] LABS: BUN/Creatinine Ratio 11 (6-26); Blood Urea Nitrogen 9 mg/dL (8-23); Calcium 8.8 mg/dL (8.6-10.3); Carbon Dioxide 30 mEq/L (23-29); Chloride 100 mEq/L (98-107); Glucose 187 mg/dL (70-105); Magnesium 1.4 mg/dL (1.6-2.6); Osmolality,Calculated 284 (280-300); Potassium 3.5 mEq/L (3.5-5.1); Sodium 135 mEq/L (136-145); eGFR For African Americans > 60 (> 60); eGFR For Non-African Americans > 60 (> 60)
[2021-10-20 07:35] LABS: Alanine Aminotransferase 82 Units/L (7-52); Albumin 2.7 g/dL (3.5-5.7); Albumin/Globulin Ratio 0.9 (1.1-2.2); Alkaline Phosphatase 233 Units/L (34-104); Aspartate Amino Transferase 33 Units/L (13-39); Bilirubin,Direct 0.1 mg/dL (0.0-0.2); Bilirubin,Indirect 0.4 mg/dL (0.0-1.0); Bilirubin,Total 0.5 mg/dL (0.3-1.0); Globulin 3.1 g/dL (2.4-3.5); Total Protein 5.8 g/dL (6.4-8.9)
[2021-10-20] MEDS: BuPROPion XL (24 HR) 150 MG TABLET PO SCH (09:30)
[2021-10-20] MEDS: Aspirin Enteric Coated 81 MG Tablet PO SCH (09:30)
[2021-10-20] MEDS: Cholecalciferol (D-3) 1,000 UNIT (25MCG) TABLET PO SCH (09:30)
[2021-10-20] MEDS: Cyanocobalamin (B-12) 1,000 MCG TABLET PO SCH (09:30)
[2021-10-20] MEDS: Insulin LISPRO 300 UNITS/3 ML VIAL SUBQ SCH ×3 (09:41→17:38)
[2021-10-20] MEDS ORDERED: Heparin 1,000 UNITS/500 mL 500 ML ONE (14:01)
[2021-10-20] MEDS: Insulin DETEMIR 100 UNIT/ML X5UNITS SUBQ SCH (21:58)
[2021-10-20] MEDS: QUEtiapine Fumarate 100 MG TABLET PO SCH (21:58)
[2021-10-21 05:05] LABS: Basophils % 0.4 %; Eosinophils # 0.5 K/mcL (0.0-0.6); Eosinophils % 4.6 %; Hemoglobin 7.4 g/dL (12.9-16.9); Immature Granulocytes % 1.2 % (0-4); Lymphocytes # 1.8 K/mcL (0.6-4.6); Lymphocytes % 17.1 %; Mean Corpuscular HGB Conc 30.8 g/dL (31.6-35.5); Mean Corpuscular Hemoglobin 27.1 pg (28.0-33.3); Mean Corpuscular Volume 87.9 fL (83.0-100.0); Mean Platelet Volume 9.2 fL (9.4-12.4); Monocytes % 9.2 %; Platelet Count 793 K/mcL (140-400); Red Blood Count 2.73 M/mcL (4.19-5.50); Red Cell Distribution Width 15.6 % (11.5-14.5); Segmented Neutrophils % 67.5 %; White Blood Count 10.4 K/mcL (4.3-11.1)
[2021-10-21 05:23] LABS: Alanine Aminotransferase 78 Units/L (7-52); Albumin 2.7 g/dL (3.5-5.7); Albumin/Globulin Ratio 0.9 (1.1-2.2); Alkaline Phosphatase 210 Units/L (34-104); Aspartate Amino Transferase 36 Units/L (13-39); BUN/Creatinine Ratio 12 (6-26); Bilirubin,Indirect 0.4 mg/dL (0.0-1.0); Bilirubin,Total 0.4 mg/dL (0.3-1.0); Blood Urea Nitrogen 11 mg/dL (8-23); Calcium 8.7 mg/dL (8.6-10.3); Carbon Dioxide 29 mEq/L (23-29); Chloride 100 mEq/L (98-107); Globulin 3.1 g/dL (2.4-3.5); Glucose 343 mg/dL (70-105); Magnesium 1.4 mg/dL (1.6-2.6); Osmolality,Calculated 293 (280-300); Potassium 3.8 mEq/L (3.5-5.1); Sodium 135 mEq/L (136-145); Total Protein 5.8 g/dL (6.4-8.9); eGFR For African Americans > 60 (> 60); eGFR For Non-African Americans > 60 (> 60)
[2021-10-21] MEDS: *HR* Enoxaparin 40 MG/0.4 ML SYRINGE SQ SCH (05:24)
[2021-10-21] MEDS: Morphine Sulfate ER (12 HR) 30 MG TABLET.ER PO SCH (05:24)
[2021-10-21] MEDS: Insulin LISPRO 300 UNITS/3 ML VIAL SUBQ SCH ×2 (07:58→11:21)
[2021-10-21] MEDS: Cefepime HCl 2,000 MG in 0.9 % Sodium Chloride 20 ML IVP SCH (07:59)
[2021-10-21] MEDS: BuPROPion XL (24 HR) 150 MG TABLET PO SCH (08:00)
[2021-10-21] MEDS: Cholecalciferol (D-3) 1,000 UNIT (25MCG) TABLET PO SCH (08:00)
[2021-10-21] MEDS: Aspirin Enteric Coated 81 MG Tablet PO SCH (08:00)
[2021-10-21] MEDS: Cyanocobalamin (B-12) 1,000 MCG TABLET PO SCH (08:00)
[2021-10-21] MEDS ORDERED: Magnesium Oxide 400 MG TABLET PO SCH (09:00)
[2021-10-21 11:20] VITALS: BP 114/72; PULSE 79; TEMP 98.1; O2SAT 92
== END 2021-10-21 16:45 | disposition home health service (06) | DRG 698 ==
LOC: EMEROOARM 14:55 → 4WAOSI 14:55 → SUATTDRO 10-15 23:33
PROVIDERS: ADMIT Student in an Organized Health Care Education/Training Program; ATTEND Pharmacist

== ENCOUNTER 2022-02-16 07:36 | Inpatient (IN) ==
[2022-02-16 09:06] LABS: Basophils # 0.1 K/mcL (0.0-0.2); Basophils % 0.6 %; Eosinophils # 0.4 K/mcL (0.0-0.6); Eosinophils % 3.1 %; Hematocrit 26.7 % (37.5-50.1); Immature Granulocytes % 0.7 % (0-4); Lymphocytes # 1.6 K/mcL (0.6-4.6); Lymphocytes % 11.9 %; Mean Corpuscular Hemoglobin 24.5 pg (28.0-33.3); Mean Corpuscular Volume 81.7 fL (83.0-100.0); Monocytes # 1.1 K/mcL (0.0-1.3); Neutrophils # 10.4 K/mcL (1.6-8.9); Platelet Count 613 K/mcL (140-400); Red Blood Count 3.27 M/mcL (4.19-5.50); Red Cell Distribution Width 18.3 % (11.5-14.5); Segmented Neutrophils % 75.7 %; White Blood Count 13.8 K/mcL (4.3-11.1)
[2022-02-16 09:28] LABS: BUN/Creatinine Ratio 33 (6-26); Blood Urea Nitrogen 23 mg/dL (8-23); Calcium 10.3 mg/dL (8.6-10.3); Carbon Dioxide 33 mEq/L (23-29); Chloride 96 mEq/L (98-107); Glucose 112 mg/dL (70-105); Osmolality,Calculated 282 (280-300); Potassium 4.4 mEq/L (3.5-5.1); Sodium 134 mEq/L (136-145); Troponin I < 0.03 ng/mL (< 0.04)
[2022-02-16] MEDS ORDERED: Morphine Sulfate 2 MG/ML SYRINGE IVP ONE (10:51)
[2022-02-16] MEDS ORDERED: Iopamidol - 370 500 ML MLS IVP ONE (11:22)
[2022-02-16] MEDS ORDERED: Piperacillin/Tazobactam 3.375 GM in 0.9 % Sodium Chloride Mini Bag 100 ML IVPB ONE (11:28)
[2022-02-16 11:46] LABS: Bacteria,Urine Few per hpf (None-Few); Bilirubin,Urine Negative (Negative); Blood,Urine Negative (Negative); Budding Yeast,Urine Many per hpf (None Seen); Clarity,Urine Turbid (Clear); Color,Urine Light-Yellow (Yellow); Glucose,Urine (UA) Normal (Normal); Hyaline Casts,Urine Few per lpf (None Seen); Ketones,Urine Negative (Negative); Leukocyte Esterase,Urine Small (Negative); Nitrite,Urine Negative (Negative); Protein,Urine Trace mg/dL (Neg-Trace); Specific Gravity,Urine 1.015 (1.010-1.025); Urobilinogen,Urine Normal (Normal); WBC,Urine 15-30 per hpf (0-3)
[2022-02-16] MEDS ORDERED: Vancomycin 1,500 MG/265 ML IV.SOLN IVPB ONE (12:00)
[2022-02-16] MEDS ORDERED: *HR* LORazepam 2 MG/ML VIAL IVP ONE ×2 (12:06→20:00)
[2022-02-16] MEDS ORDERED: levETIRAcetam 500 MG/5 ML UDC PO ONE (14:45)
[2022-02-16] MEDS ORDERED: *HR* Dextrose 50 % in Water (Syg) 50 ML SYRINGE IVP PRN (16:07)
[2022-02-16] MEDS ORDERED: D5% in Water 1,000 ML IVC PRN (16:07)
[2022-02-16] MEDS ORDERED: Naloxone 0.4 MG/ML INJ IVP PRN (16:07)
[2022-02-16] MEDS ORDERED: Ondansetron 4 MG/2 ML VIAL IVP PRN (16:07)
[2022-02-16] MEDS ORDERED: Dextrose Gel 15 GM/37.5 ML TUBE PO PRN ×2 (16:07)
[2022-02-16] MEDS ORDERED: Acetaminophen 325 MG TABLET PO PRN (16:07)
[2022-02-16 19:54] LABS: Estimated Average Glucose 157 mg/dl; Hemoglobin A1C 7.1 %
[2022-02-16] MEDS: Morphine Sulfate Oral CONC 10 MG/0.5 ML ORAL.SYG PO SCH (20:24)
[2022-02-16] MEDS: Docusate Oral Soln 100 MG/10 ML UDC GTUBE SCH (20:26)
[2022-02-16] MEDS: levETIRAcetam 250 MG TABLET PO SCH (20:26)
[2022-02-16] MEDS: Insulin DETEMIR 100 UNIT/ML X5UNITS SUBQ SCH (20:44)
[2022-02-16] MEDS: Piperacillin/Tazobactam 3.375 GM in 0.9 % Sodium Chloride Mini Bag 100 ML IVPB SCH (23:43)
[2022-02-17] MEDS: Morphine Sulfate 2 MG/ML SYRINGE IVP PRN ×3 (00:25→13:16)
[2022-02-17] MEDS: Vancomycin 1,500 MG/265 ML IV.SOLN IVPB SCH ×2 (02:55→16:46)
[2022-02-17 04:37] LABS: Basophils # 0.1 K/mcL (0.0-0.2); Basophils % 0.5 %; Eosinophils # 0.3 K/mcL (0.0-0.6); Eosinophils % 2.3 %; Hemoglobin 8.2 g/dL (12.9-16.9); Immature Granulocytes % 0.8 % (0-4); Lymphocytes # 2.2 K/mcL (0.6-4.6); Mean Corpuscular HGB Conc 31.5 g/dL (31.6-35.5); Mean Corpuscular Hemoglobin 25.1 pg (28.0-33.3); Mean Corpuscular Volume 79.5 fL (83.0-100.0); Mean Platelet Volume 9.2 fL (9.4-12.4); Monocytes # 1.4 K/mcL (0.0-1.3); Monocytes % 10.4 %; Neutrophils # 9.1 K/mcL (1.6-8.9); Platelet Count 657 K/mcL (140-400); Red Blood Count 3.27 M/mcL (4.19-5.50); Red Cell Distribution Width 18.3 % (11.5-14.5); White Blood Count 13.2 K/mcL (4.3-11.1)
[2022-02-17 05:08] LABS: Alanine Aminotransferase 18 Units/L (7-52); Albumin/Globulin Ratio 0.7 (1.1-2.2); Alkaline Phosphatase 179 Units/L (34-104); Aspartate Amino Transferase 13 Units/L (13-39); BUN/Creatinine Ratio 26 (6-26); Bilirubin,Total 0.4 mg/dL (0.3-1.0); Blood Urea Nitrogen 20 mg/dL (8-23); Calcium 10.4 mg/dL (8.6-10.3); Carbon Dioxide 28 mEq/L (23-29); Chloride 98 mEq/L (98-107); Globulin 4.2 g/dL (2.4-3.5); Glucose 119 mg/dL (70-105); Magnesium 1.7 mg/dL (1.6-2.6); Osmolality,Calculated 282 (280-300); Potassium 3.7 mEq/L (3.5-5.1); Sodium 134 mEq/L (136-145); Total Protein 7.2 g/dL (6.4-8.9)
[2022-02-17] MEDS: Docusate Oral Soln 100 MG/10 ML UDC GTUBE SCH ×2 (08:07→21:30)
[2022-02-17] MEDS: Aspirin Enteric Coated 81 MG Tablet PO SCH (08:08)
[2022-02-17] MEDS: levETIRAcetam 250 MG TABLET PO SCH ×2 (08:08→21:32)
[2022-02-17] MEDS: Piperacillin/Tazobactam 3.375 GM in 0.9 % Sodium Chloride Mini Bag 100 ML IVPB SCH ×3 (08:08→23:40)
[2022-02-17] MEDS: Morphine Sulfate Oral CONC 10 MG/0.5 ML ORAL.SYG PO SCH ×2 (08:08→21:31)
[2022-02-17] MEDS: Insulin DETEMIR 100 UNIT/ML X5UNITS SUBQ SCH ×2 (08:08→21:30)
[2022-02-17 09:06] LABS: C-Reactive Protein 154 mg/L (Less than 10)
[2022-02-17] MEDS ORDERED: FIBER GTUBE SCH (14:45)
[2022-02-17] MEDS ORDERED: LACTOSE REDUCED FOOD GTUBE SCH (14:45)
[2022-02-17] MEDS ORDERED: [UNRECOGNIZED DRUG - OTHER] GTUBE SCH (14:45)
[2022-02-17] MEDS ORDERED: *HR* FentaNYL PATCH 25 MCG PATCH TD SCH (15:00)
[2022-02-17] MEDS ORDERED: BuPROPion SR (12 HR) 100 MG TABLET PO SCH (15:00)
[2022-02-17] MEDS: GuaiFENesin Liq 200 MG/10 ML UDC GTUBE SCH ×2 (16:45→21:30)
[2022-02-17] MEDS ORDERED: QUEtiapine Fumarate 25 MG TABLET GTUBE SCH (21:00)
[2022-02-17] MEDS: *HR* LORazepam 0.5 MG TABLET GTUBE SCH (21:32)
[2022-02-18] MEDS: Vancomycin 1,500 MG/265 ML IV.SOLN IVPB SCH (05:34)
[2022-02-18 06:18] LABS: Magnesium 1.8 mg/dL (1.6-2.6); Phosphorous 4.9 mg/dL (2.7-4.5)
[2022-02-18 06:24] LABS: Hematocrit 25.6 % (37.5-50.1); Hemoglobin 7.7 g/dL (12.9-16.9); Mean Corpuscular HGB Conc 30.1 g/dL (31.6-35.5); Mean Corpuscular Hemoglobin 24.1 pg (28.0-33.3); Mean Platelet Volume 9.7 fL (9.4-12.4); Platelet Count 735 K/mcL (140-400); Red Cell Distribution Width 18.4 % (11.5-14.5); White Blood Count 10.7 K/mcL (4.3-11.1)
[2022-02-18 06:26] LABS: Basophils # 0.1 K/mcL (0.0-0.2); Basophils % 0.8 %; Eosinophils # 0.5 K/mcL (0.0-0.6); Eosinophils % 5.2 %; Hemoglobin 7.9 g/dL (12.9-16.9); Immature Granulocytes % 0.6 % (0-4); Lymphocytes # 1.9 K/mcL (0.6-4.6); Lymphocytes % 18.4 %; Mean Corpuscular HGB Conc 30.4 g/dL (31.6-35.5); Mean Corpuscular Hemoglobin 24.5 pg (28.0-33.3); Mean Corpuscular Volume 80.7 fL (83.0-100.0); Mean Platelet Volume 9.5 fL (9.4-12.4); Monocytes # 1.2 K/mcL (0.0-1.3); Monocytes % 11.2 %; Neutrophils # 6.7 K/mcL (1.6-8.9); Platelet Count 700 K/mcL (140-400); Red Blood Count 3.22 M/mcL (4.19-5.50); Red Cell Distribution Width 18.5 % (11.5-14.5); Segmented Neutrophils % 63.8 %; White Blood Count 10.5 K/mcL (4.3-11.1)
[2022-02-18] MEDS: Docusate Oral Soln 100 MG/10 ML UDC GTUBE SCH (08:40)
[2022-02-18] MEDS: Morphine Sulfate Oral CONC 10 MG/0.5 ML ORAL.SYG PO SCH (08:41)
[2022-02-18] MEDS: Piperacillin/Tazobactam 3.375 GM in 0.9 % Sodium Chloride Mini Bag 100 ML IVPB SCH ×2 (08:41→15:57)
[2022-02-18] MEDS: *HR* LORazepam 0.5 MG TABLET GTUBE SCH (08:42)
[2022-02-18] MEDS: levETIRAcetam 250 MG TABLET PO SCH (08:42)
[2022-02-18] MEDS: Aspirin Enteric Coated 81 MG Tablet PO SCH (08:42)
[2022-02-18] MEDS ORDERED: Magnesium Oxide 400 MG TABLET GTUBE SCH (09:00)
[2022-02-18] MEDS ORDERED: *HR* Enoxaparin 40 MG/0.4 ML SYRINGE SQ SCH (09:00)
[2022-02-18] MEDS: Insulin DETEMIR 100 UNIT/ML X5UNITS SUBQ SCH (09:00)
[2022-02-18] MEDS: GuaiFENesin Liq 200 MG/10 ML UDC GTUBE SCH ×3 (11:26→18:11)
[2022-02-18] MEDS: Morphine Sulfate 2 MG/ML SYRINGE IVP PRN ×2 (11:36→16:54)
[2022-02-18 11:46] LABS: Alanine Aminotransferase 33 Units/L (7-52); Albumin 2.9 g/dL (3.5-5.7); Albumin/Globulin Ratio 0.7 (1.1-2.2); Alkaline Phosphatase 243 Units/L (34-104); Aspartate Amino Transferase 36 Units/L (13-39); BUN/Creatinine Ratio 23 (6-26); Bilirubin,Total 0.4 mg/dL (0.3-1.0); Blood Urea Nitrogen 18 mg/dL (8-23); Calcium 10.5 mg/dL (8.6-10.3); Carbon Dioxide 22 mEq/L (23-29); Chloride 102 mEq/L (98-107); Globulin 4.3 g/dL (2.4-3.5); Glucose 74 mg/dL (70-105); Osmolality,Calculated 287 (280-300); Potassium 3.4 mEq/L (3.5-5.1); Sodium 138 mEq/L (136-145); Total Protein 7.2 g/dL (6.4-8.9)
[2022-02-18] MEDS ORDERED: Vancomycin 1,500 MG/265 ML IV.SOLN IVPB SCH ×2 (14:00→16:00)
[2022-02-18 15:48] VITALS: BP 85/53; PULSE 86; TEMP 98.7; O2SAT 100
[2022-02-18] MEDS ORDERED: Vancomycin 1,250 MG/262.5 ML IV.SOLN IVPB SCH (16:00)
[2022-02-18] MEDS ORDERED: levETIRAcetam 500 MG/5 ML UDC GTUBE SCH (21:00)
[2022-02-18] MEDS ORDERED: Morphine Sulfate Oral CONC 10 MG/0.5 ML ORAL.SYG GTUBE SCH (21:00)
[2022-02-19] MEDS ORDERED: Aspirin 81 MG TAB.CHEW GTUBE SCH (09:00)
== END 2022-02-18 20:15 | disposition hospice, home (50) | DRG 205 ==
LOC: 2NENU 07:36 → EMEROOARM 07:36 → 2NENU 16:54 → SUATTDRO 02-17 18:13
PROVIDERS: ADMIT Hospitalist; ATTEND Family Medicine